=== PATIENT | male | born 1935 | race Hispanic/Latino ===

== ENCOUNTER 2018-10-30 00:10 | Inpatient (IN) | payer MEDICARE, BC ==
[2018-10-30] MEDS ORDERED: Dexamethasone 20 mg / 5 ml Inj IVP STA (00:46)
--- NOTE | 2018-10-30 00:58 | ED PDOC ---
Arrival/HPI - General Historian: Patient - History of Present Illness Narrative History of Present Illness (Text): 10/30/18 00:52 83yo male with pmhx of hypertension, Diabetes, chronic back pain, OA of the left knee who present with was bib EMS for complaint of severe lower back pain x2days. Per patient's family by the bedside patient have always had lower back pain and refused to take any medication or see a specialist but the pain became worse 2days ago. Notes that patient lives by himself and has not been able to move around secondary to the pain. Describes pain as sharp, constant and worse with any movement. Denies abdominal pain, saddle anesthesia, fecal/urinary inco ntinence, focal weakness, fever, chills, hematuria, trauma, any other complaint. <Magnolia Quintanilla A - Last Filed: 10/30/18 00:52> <Macario Cuadra - Last Filed: 10/30/18 05:58> - General Chief Complaint: Back Pain Past Medical History - Provider Review Nursing Documentation Reviewed: Yes - Infectious Disease Hx of Infectious Diseases: None - Cardiac Hx Cardiac Disorders: Yes Hx Hypertension: Yes - Pulmonary Hx Respiratory Disorders: No - Neurological Hx Neurological Disorder: No - HEENT Hx HEENT Disorder: No - Renal Hx Renal Disorder: No - Endocrine/Metabolic Hx Endocrine Disorders: Yes Hx Diabetes Mellitus Type 2: Yes - Hematological/Oncological Hx Blood Disorders: No - Integumentary Hx Dermatological Disorder: No - Musculoskeletal/Rheumatological Hx Musculoskeletal Disorders: Yes Hx Back Pain: Yes - Gastrointestinal Hx Gastrointestinal Disorders: No - Genitourinary/Gynecological Hx Genitourinary Disorders: No - Psychiatric Hx Psychophysiologic Disorder: No Hx Substance Use: No <Magnolia Quintanilla A - Last Filed: 10/30/18 00:52> Family/Social History - Physician Review Nursing Documentation Reviewed: Yes Family/Social History: Unknown Family HX Smoking Status: Never Smoked Hx Alcohol Use: No Hx Substance Use: No <Magnolia Quintanilla A - Last Filed: 10/30/18 00:52> Allergies/Home Meds <Magnolia Quintanilla A - Last Filed: 10/30/18 00:52> <Macario Cuadra - Last Filed: 10/30/18 05:58> Allergies/Adverse Reactions: Allergies No Known Allergies Allergy (Verified 10/30/18 00:22) Home Medications: Home Meds Medication Instructions Recorded Confirmed Unobtainable 10/30/18 10/30/18 Review of Systems - Physician Review All systems were reviewed & negative as marked: Yes - Review of Systems Constitutional: Normal Eyes: Normal ENT: Normal Respiratory: Normal Cardiovascular: Normal Gastrointestinal: Normal Genitourinary Male: Normal Musculoskeletal: Back Pain Skin: Normal Neurological: Normal Endocrine: Normal Hemo/Lymphatic: Normal Psychiatric: Normal <DirkieshaHappiness A - Last Filed: 10/30/18 00:52> Physical Exam Vital Signs Reviewed: Yes Vital Signs Temp Pulse Resp BP Pulse Ox 10/30/18 00:32 97.3 F L 80 18 185/96 H 97 Temperature: Afebrile Blood Pressure: Normal Pulse: Regular Respiratory Rate: Normal Appearance: Positive for: Well-Appearing, Non-Toxic, Comfortable Pain Distress: Moderate Mental Status: Positive for: Alert and Oriented X 3 - Systems Exam Head: Present: Atraumatic, Normocephalic Pupils: Present: PERRL Extroacular Muscles: Present: EOMI Conjunctiva: Present: Normal Mouth: Present: Moist Mucous Membranes Neck: Present: Normal Range of Motion Respiratory/Chest: Present: Clear to Auscultation, Good Air Exchange. No: Respiratory Distress, Accessory Muscle Use Cardiovascular: Present: Regular Rate and Rhythm, Normal S1, S2. No: Murmurs Abdomen: No: Tenderness, Distention, Peritoneal Signs Back: Present: Pain with Leg Raise (B/L). No: Midline Tenderness (Unable to evaluate secondary to pain), Paraspinal Tenderness (Unable to evaluate secondary to pain) Upper Extremity: Present: Normal Inspection. No: Cyanosis, Edema Lower Extremity: Present: Normal Inspection. No: Edema Neurological: Present: GCS=15, CN II-XII Intact, Speech Normal Skin: Present: Warm, Dry, Normal Color. No: Rashes Psychiatric: Present: Alert, Oriented x 3, Normal Insight, Normal Concentration <Diru,Happiness A - Last Filed: 10/30/18 00:52> Vital Signs Temp Pulse Resp BP Pulse Ox 10/30/18 00:32 97.3 F L 80 18 185/96 H 97 <Macario Cuadra - Last Filed: 10/30/18 05:58> Medical Decision Making - RAD Interpretation Radiology Orders: 10/30/18 00:44 LUMBAR SPINE W/O CONTRAST [CT] Stat - Medication Orders Current Medication Orders: Dexamethasone (Decadron Inj) 10 mg IVP STAT STA Stop: 10/30/18 00:47 Diazepam (Valium) 5 mg PO ONCE ONE; Protocol Stop: 10/30/18 00:48 Ketorolac Tromethamine (Toradol) 15 mg IVP STAT STA Stop: 10/30/18 00:48 <Magnolia Quintanilla - Last Filed: 10/30/18 00:52> ED Course and Treatment: 10/30/18 04:32 CT LS Spine-CT scan of the lumbar spine without contrast. Indication: Low back pain. Technique: Axial CT scan images without contrast. Reformatted coronal and sagittal images. Findings: Erosive endplate changes are noted at the level of the intervertebral disc space of L1 and L2. Prominent surrounding soft tissue thickening and inflammatory fat stranding. Associated moderate diffuse disc bulge with moderate narrowing of the corresponding aspect of the spinal canal. Moderate osteopenia. Straightening of lumbar lordosis, probably muscular spasm and pain. There are moderate diffuse spondylotic changes. Findings are demonstrated by disc space narrowing, osteophyte formation and degenerative endplate changes. Facet joint arthropathy is noted. No fracture or dislocation is seen. No aggressive bone lesion is noted. Mild multilevel narrowing of the spinal canal at the remaining levels from L2- S1. Moderate bilateral neural foramina narrowing at the same levels. Moderate prostatomegaly. Multiple stones are noted in the bladder with the largest measuring 1.3 cm. Impression: Erosive changes of spondylotic ascites are noted at L1-L2. No associated drainable abscess formation. Spondylosis. Multilevel facet joint arthropathy 10/30/2018 05:[address] Prakash Marinelli, who accepts patient to be admitted to med-surg for observation under his service for lumbar disc disease and intractable back pain. 10/30/2018 03:[address] IMPRESSION: Erosive changes of spondylotic ascites are noted at L1-L2. No associated drainable abscess formation. Spondylosis. Multilevel facet joint arthropathy. Dictator: Emanuel Orantes MD - Lab Interpretations Lab Results: PT 14.9 SECONDS (9.4-12.5) H 10/30/18 00:55 INR 1.34 10/30/18 00:55 APTT 30.8 Seconds (26.9-38.3) 10/30/18 00:55 - RAD Interpretation Radiology Orders: 10/30/18 00:44 LUMBAR SPINE W/O CONTRAST [CT] Stat - Medication Orders Current Medication Orders: Discontinued Medications Dexamethasone (Decadron Inj) 10 mg IVP STAT STA Stop: 10/30/18 00:47 Last Admin: 10/30/18 01:11 Dose: 10 mg IVP Administration Document 10/30/18 01:11 SS (Rec: 10/30/18 01:11 SS [id number]) Charges for Administration # of IVP Administrations 1 Diazepam (Valium) 5 mg PO ONCE ONE; Protocol Stop: 10/30/18 00:48 Last Admin: 10/30/18 01:11 Dose: 5 mg Ketorolac Tromethamine (Toradol) 15 mg IVP STAT STA Stop: 10/30/18 00:48 Last Admin: 10/30/18 01:11 Dose: 15 mg MAR Pain Assessment Document 10/30/18 01:11 SS (Rec: 10/30/18 01:11 SS [id number]) Pain Reassessment Is this a pain reassessment? No Sleep Is patient sleeping during reassessment? No Presence of Pain Presence of Pain Yes IVP Administration Document 10/30/18 01:11 SS (Rec: 10/30/18 01:11 SS [id number]) Charges for Administration # of IVP Administrations 1 <Macario Cuadra - Last Filed: 10/30/18 05:58> - PA / DOOR PERSON / Resident Statement MAL has reviewed & agrees with the documentation as recorded. MAL has examined the patient and agrees with the treatment plan. <Macario Cuadra - Last Filed: 10/30/18 05:58> Disposition/Present on Arrival - Present on Arrival History of DVT/PE: No History of Uncontrolled Diabetes: No Urinary Catheter: No History of Decub. Ulcer: No History Surgical Site Infection Following: None <Magnolia Quintanilla - Last Filed: 10/30/18 00:52> - Present on Arrival Any Indicators Present on Arrival: No History of DVT/PE: No History of Uncontrolled Diabetes: No Urinary Catheter: No History of Decub. Ulcer: No History Surgical Site Infection Following: None - Disposition Have Diagnosis and Disposition been Completed?: Yes Disposition Time: 05:02 <Macario Cuadra - Last Filed: 10/30/18 05:58> - Disposition Diagnosis: Intractable low back pain, Lumbar disc disease Disposition: HOSPITALIZED Patient Problems: Current Active Problems Problem Status Onset Intractable low back pain Acute Lumbar disc disease Acute Condition: STABLE
[2018-10-30 01:12] LABS: BASO # 0.01 K/mm3 (0.0-2.0); BASO % 0.1 % (0.0-3.0); HEMOGLOBIN 12.2 g/dL (14.0-18.0); LYMPH # 0.8 (1.2-3.4); LYMPH % 7.3 % (22.0-35.0); MEAN CELL VOLUME 92.5 fl (80.0-105.0); MEAN CORPUSCULAR HEMOGLOBIN 30.7 pg (25.0-35.0); MEAN CORPUSCULAR HGB CONC 33.2 g/dl (31.0-37.0); MEAN PLATELET VOLUME 11.3 fl (7.0-11.0); MONO # 1.3 (0.1-0.6); MONO % 12.8 % (1.0-6.0); RBC 3.98 10^6/uL (3.5-6.1); RED CELL DISTRIBUTION WIDTH 14.2 % (11.5-14.5); WHITE BLOOD COUNT 10.5 10^3/uL (4.5-11.0)
[2018-10-30 01:23] LABS: INR 1.34; PROTHROMBIN TIME 14.9 SECONDS (9.4-12.5)
[2018-10-30 01:31] LABS: PARTIAL THROMBOPLASTIN TIME 30.8 Seconds (26.9-38.3)
[2018-10-30 02:17] LABS: ALB/GLOB RATIO 1.4 (1.1-1.8); CALCIUM 9.8 mg/dL (8.4-10.5)
[2018-10-30] MEDS ORDERED: Morphine 2 mg/ml ISec IVP STA (04:17)
[2018-10-30] MEDS ORDERED: Oxycodone/Acetaminophen 5/325 mg Tab PO PRN (05:05)
[2018-10-30] MEDS: Insulin Reg-MEDIUM-Coverage SC SCH ×4 (08:24→21:38)
[2018-10-30] MEDS: Oxycodone/Acetaminophen 5/325 mg Tab PO PRN (10:56)
--- NOTE | 2018-10-30 12:23 | CT ---
Date of service: 10/30/2018 PROCEDURE: CT Lumbar Spine without contrast HISTORY: lower back pain COMPARISON: None available. TECHNIQUE: Axial computed tomography images were obtained of the lumbar spine without the use of intravenous contrast. Coronal and sagittal reformatted images were created and reviewed. Radiation dose: Total exam DLP = 1475.57 mGy-cm. This CT exam was performed using one or more of the following dose reduction techniques: Automated exposure control, adjustment of the mA and/or kV according to patient size, and/or use of iterative reconstruction technique. FINDINGS: VERTEBRAE: Unremarkable. No fracture. Normal alignment. DISCS/SPINAL CANAL/NEURAL FORAMINA: Marked erosive changes at L1-2 with severe endplate sclerosis and erosions. Prominent surrounding the soft tissues thickness digested possible inflammation. Associated disc bulge with narrowing of the central canal. Diffuse severe osteopenia. Multilevel facet arthropathy. Multilevel narrowing of the spinal canal from L2 through S1. Multilevel spondylotic foraminal stenosis. PARASPINAL SOFT TISSUES: Unremarkable. OTHER FINDINGS: Marked prostate enlargement. IMPRESSION: Markedly severe erosive changes at L1-2. No acute fracture. Spinal stenosis at L1-2 with soft tissue swelling possibly representing underlying inflammatory component. Otherwise multilevel degenerative disc disease, spondylosis and osteopenia.
--- NOTE | 2018-10-30 13:16 | MRI ---
Date of service: 10/30/2018 PROCEDURE: MR LUMBAR SPINE WITHOUT CONTRAST HISTORY: LS radiculopathy COMPARISON: CT of the abdomen 06/17/[address] of the lumbar spine 10/30/2018 TECHNIQUE: Multiecho multiplanar sequences were performed through the lumbar spine without the use of intravenous contrast. FINDINGS: Straightening of the lumbar spine Vertebral body heights are preserved. Marrow signal unremarkable. Conus medullaris unremarkable at the level of L1 Paraspinal soft tissues are unremarkable. T12-L1: No disc herniation, spinal canal stenosis or neural foraminal narrowing. L1-2: Severe degenerative changes are seen in the L1 L2 disc space. The disc space is filled with fluid. Severe degenerative changes of been seen at this level since the CT of 2011. Therefore this most likely represents progression of degeneration rather than discitis. There is no evidence of marrow edema to suggest acute infection. The disc bulge and facet arthropathy produces a severe degree of spinal stenosis at this level. L2-3: Severe disc degeneration with loss of disc height. Moderate facet arthropathy. L3-4: Asymmetric disc bulge right greater than left with right-sided foraminal stenosis. Mild central stenosis L4-5: Disc bulge and severe facet arthropathy. Bilateral foraminal stenosis. No significant central stenosis. L5-S1: Severe disc degeneration with loss of disc height and bilateral foraminal stenosis OTHER FINDINGS: None. IMPRESSION: Severe degenerative changes are seen in the L1 L2 disc space. The disc space is filled with fluid. Severe degenerative changes of been seen at this level since the CT of 2011. Therefore this most likely represents progression of degeneration rather than discitis. There is no evidence of marrow edema to suggest acute infection. The disc bulge and facet arthropathy produces a severe degree of spinal stenosis at this level.
--- NOTE | 2018-10-30 19:42 | HP ---
DATE OF EXAM: 10/30/2018 HISTORY OF PRESENT ILLNESS: The patient is an 83-year-old white male who presented to the emergency room with severe low back pain. PAST MEDICAL HISTORY: Remarkable for diabetes, hypertension, and left knee osteoarthritis. FAMILY HISTORY: Noncontributory. SOCIAL HISTORY: Nonsmoker, does not abuse illegal medications. ALLERGIES: NO KNOWN ALLERGIES. The patient has been having back pain off and on for many years, but it has now gotten much worse and the patient is unable to walk. PHYSICAL EXAMINATION: VITAL SIGNS: Temperature of 97.8, pulse rate of 81, blood pressure of 160/80, respiratory rate 18, and O2 saturation of 97% on room air. HEENT: PERRLA. EOMI. NECK: Supple with full range of motion. LUNGS: Clear to auscultation and percussion bilaterally. HEART: Regular rate and rhythm. ABDOMEN: Soft. It is nontender. There is no organomegaly. Bowel sounds are normoactive. EXTREMITIES: Show no deformities or edema. There is some swelling of the left knee. NEUROLOGIC: Straight leg raising is positive bilaterally at 30 degrees. Deep tendon reflexes are symmetrical. Cranial nerves II through XII were intact. LABORATORY DATA: CT scan of the back showed multiple desiccated arthritic disks and straightening of the lumbar lordosis. IMPRESSION: At this time is: 1. Muscle spasm lumbosacral spine. 2. Diabetes. 3. Hypertension. 4. Osteoarthritis of the left knee. PLAN: The plan is to get MRI. We will start Zanaflex as well as some Percocet with the patient based on what the MRI shows, future intervention will be dictated. Brigido Marinelli MD
[2018-10-31 08:42] LABS: HEMOGLOBIN 11.3 g/dL (14.0-18.0); MEAN CELL VOLUME 91.4 fl (80.0-105.0); MEAN CORPUSCULAR HEMOGLOBIN 30.3 pg (25.0-35.0); MEAN CORPUSCULAR HGB CONC 33.1 g/dl (31.0-37.0); MEAN PLATELET VOLUME 11.3 fl (7.0-11.0); RBC 3.73 10^6/uL (3.5-6.1); RED CELL DISTRIBUTION WIDTH 14.1 % (11.5-14.5)
[2018-10-31 08:51] LABS: CALCIUM 9.4 mg/dL (8.4-10.5)
[2018-10-31] MEDS: Insulin Reg-MEDIUM-Coverage SC SCH ×4 (09:05→21:42)
--- NOTE | 2018-10-31 10:19 | PN ---
SUBJECTIVE: The patient was seen and examined at bedside on the remote telemetry willis. No acute events overnight. He remains afebrile and hemodynamically stable. He continues to endorse low back pain but does report it is improved since admission. He has been evaluated by PT and recommendations have been made for acute rehab. He states that he would like to discuss this with his family prior to making any decisions. OBJECTIVE: VITAL SIGNS: Temperature 97.8, pulse 73, blood pressure 160/74, respiratory rate 20 and oxygen saturation 95% on room air. GENERAL: No apparent distress. HEENT: PERRL, EOMI. No scleral icterus. No conjunctival pallor. NECK: No JVD. No bruits. LUNGS: Clear to auscultation. CARDIOVASCULAR: Regular rate and rhythm. Normal S1 and S2. ABDOMEN: Normoactive bowel sounds, soft, nontender and nondistended. EXTREMITIES: No edema. NEUROLOGIC: Awake, alert and oriented x 3. No focal motor deficits. LABORATORY DATA: Morning labs are pending. IMAGING STUDIES: MRI of the lumbar spine demonstrates severe degenerative changes to L1-L2 with no evidence of diskitis or abscess. ASSESSMENT: The patient is an 83-year-old man with a past medical history of hypertension and non-insulin dependent diabetes mellitus who presented with a several day history of low back pain and was admitted for pain control and PT evaluation. PLAN: 1. Lumbosacral radiculopathy. MRI reviewed. Continue Percocet 5/325 mg 1 tablet p.o. q. 6 hours p.r.n. pain. Continue with PT. 2. Hypertension. Continue Lisinopril 10 mg p.o. daily. 3. Non-insulin dependent diabetes mellitus. Continue insulin sliding scale for coverage and we will start Metformin 500 mg p.o. daily. 4. Prophylaxis. GI prophylaxis not indicated as the patient is eating. Continue with Heparin for DVT prophylaxis. CODE STATUS: Full code. Duncan Marinelli MD [facility]ENTERJeanette
[2018-10-31] MEDS: Oxycodone/Acetaminophen 5/325 mg Tab PO PRN (14:04)
[2018-11-01] MEDS: Oxycodone/Acetaminophen 5/325 mg Tab PO PRN ×2 (00:02→08:27)
[2018-11-01 06:42] LABS: CALCIUM 9.4 mg/dL (8.4-10.5)
[2018-11-01 06:44] LABS: HEMOGLOBIN 11.5 g/dL (14.0-18.0); MEAN CELL VOLUME 91.9 fl (80.0-105.0); MEAN CORPUSCULAR HEMOGLOBIN 30.2 pg (25.0-35.0); MEAN CORPUSCULAR HGB CONC 32.9 g/dl (31.0-37.0); MEAN PLATELET VOLUME 10.9 fl (7.0-11.0); RBC 3.81 10^6/uL (3.5-6.1); RED CELL DISTRIBUTION WIDTH 13.9 % (11.5-14.5); WHITE BLOOD COUNT 13.2 10^3/uL (4.5-11.0)
[2018-11-01] MEDS: Insulin Reg-MEDIUM-Coverage SC SCH ×4 (08:19→21:55)
[2018-11-01] MEDS ORDERED: Oxycodone/Acetaminophen 5/325 mg Tab PO ONE (09:19)
[2018-11-01] MEDS: Sodium Chloride 0.9% 1,000 ML IV SCH (09:49)
[2018-11-01 18:44] LABS: URINE BILIRUBIN SMALL (NEGATIVE); URINE BLOOD LARGE (NEGATIVE); URINE GLUCOSE (UA) NEGATIVE (NEGATIVE); URINE LEUKOCYTE ESTERASE MODERATE Leu/uL (NEGATIVE); URINE PROTEIN 30 mg/dL (<30 mg/dL)
[2018-11-01 18:47] LABS: URINE APPEARANCE SLIGHT-CLOUDY (CLEAR); URINE COLOR DARK YELLOW (YELLOW)
[2018-11-01 19:00] LABS: URINE WBC TNTC /hpf (0-6)
[2018-11-01 19:01] LABS: URINE BACTERIA MANY /hpf; URINE HYALINE CAST 0 - 2 /hpf
--- NOTE | 2018-11-01 20:28 | PN ---
SUBJECTIVE: The patient was seen and examined at bedside on the general medical willis. No acute events overnight. He remains afebrile and hemodynamically stable. PT has recommended acute rehab and the family is pending decision on this matter. OBJECTIVE: VITAL SIGNS: Temperature 98, pulse 80, blood pressure 156/74, respiratory rate 20, oxygen saturation 95% on room air. GENERAL: No apparent distress. HEENT: PERRL. EOMI. No scleral icterus. No conjunctival pallor. NECK: No JVD, no bruits. LUNGS: Clear to auscultation. CARDIOVASCULAR: Regular rate and rhythm. Normal S1 and S2. ABDOMEN: Normoactive bowel sounds, soft, nontender, nondistended. EXTREMITIES: No edema. NEUROLOGIC: Awake, alert, and oriented x 3. No focal motor deficits. LABORATORY DATA: WBC 13.2, hemoglobin 11.5, hematocrit 35, platelets 155. Sodium 137, potassium 4.3, chloride 103, bicarb 27, BUN 53, creatinine 1.9, glucose 182. ASSESSMENT: The patient is an 83-year-old man with a past medical history of hypertension and non-insulin dependent diabetes mellitus who presented with a several day history of low back pain and was admitted for pain control and PT evaluation. PLAN: 1. Lumbosacral radiculopathy. MRI reviewed. Continue Percocet 5/325 mg 1 tablet p.o. q. 6 hours p.r.n. pain. Continue with PT. 2. Hypertension. We will discontinue Lisinopril in the setting of RAYRAY and start Norvasc 10 mg p.o. daily. Continue to monitor hemodynamics and adjust medications as needed. 3. Acute kidney injury. As above, we will discontinue Lisinopril and start the patient on gentle IV fluid hydration. We will monitor I&O's. 4. Kyb-uaeaerc-qymydsobz diabetes mellitus. Continue insulin sliding scale for coverage and Metformin 500 mg p.o. daily. 5. Prophylaxis. GI prophylaxis not indicated as the patient is eating. Continue with heparin for DVT prophylaxis. CODE STATUS: Full code. Duncan Marinelli MD [facility]
[2018-11-02] MEDS: Sodium Chloride 0.9% 1,000 ML IV SCH (00:19)
[2018-11-02] MEDS: Oxycodone/Acetaminophen 5/325 mg Tab PO PRN ×4 (06:35→23:55)
[2018-11-02 06:54] LABS: HEMOGLOBIN 11.8 g/dL (14.0-18.0); MEAN CELL VOLUME 92.4 fl (80.0-105.0); MEAN CORPUSCULAR HEMOGLOBIN 29.8 pg (25.0-35.0); MEAN CORPUSCULAR HGB CONC 32.2 g/dl (31.0-37.0); RBC 3.96 10^6/uL (3.5-6.1); WHITE BLOOD COUNT 13.9 10^3/uL (4.5-11.0)
[2018-11-02 07:18] LABS: CALCIUM 9.6 mg/dL (8.4-10.5)
[2018-11-02] MEDS: Insulin Reg-MEDIUM-Coverage SC SCH ×4 (08:54→22:04)
--- NOTE | 2018-11-02 09:45 | PN ---
SUBJECTIVE: The patient was seen and examined at bedside on the remote telemetry willis. No acute events overnight. He remains afebrile and hemodynamically stable and is pending placement to acute rehab. OBJECTIVE: VITAL SIGNS: Temperature 98, pulse 85, blood pressure 152/85, respiratory rate 20, oxygen saturation 94% on room air. GENERAL: No apparent distress. HEENT: PERRL, EOMI. No scleral icterus. No conjunctival pallor. NECK: No JVD, no bruits. LUNGS: Clear to auscultation. CARDIOVASCULAR: Regular rate and rhythm. Normal S1, S2. ABDOMEN: Normoactive bowel sounds, soft, nontender, minimally distended with voluntary guarding to the suprapubic region. EXTREMITIES: No edema. NEUROLOGIC: Awake, alert and oriented x 2 (person and place). No focal motor deficits. LABORATORY DATA: WBC 13.9, hemoglobin 12, hematocrit 37, platelets 185. Sodium 140, potassium 4, chloride 103, bicarb 28, BUN 48, creatinine 1.8, glucose 223. ASSESSMENT: The patient is an 83-year-old man with a past medical history of hypertension and non-insulin dependent diabetes mellitus who presented with a several day history of low back pain was admitted for pain control and PT evaluation. PLAN: 1 Lumbosacral radiculopathy. MRI reviewed. Continue with current analgesic regimen. Continue with PT. 2. Hypertension. Blood pressure stable. Continue Norvasc 10 mg p.o. daily. 3. Acute kidney injury. Continue with gentle IV fluid hydration, monitoring strict I&O's, renally dosing medications and avoiding nephrotoxins. We will order a bladder scan to assess the patient's residual volume and determine need for catheter placement. 4. Non-insulin dependent diabetes mellitus. Continue insulin sliding scale for coverage and Metformin 500 mg p.o. daily. 5. Prophylaxis. GI prophylaxis not indicated as the patient is eating. Continue with heparin for DVT prophylaxis. CODE STATUS: Full code. Duncan Marinelli MD [facility]
--- NOTE | 2018-11-02 11:33 | CP.PCM.PCO ---
Physician Communication Note - Physician Communication Note Physician Communication Note: PT recs acute rehab, Sw/CM planning for acut rehab
--- NOTE | 2018-11-02 16:21 | CP.PCM.APN ---
Subjective - Date & Time of Evaluation Date of Evaluation: 11/02/18 Time of Evaluation: 11:00 - Subjective Subjective: Pt. seen and examined, bedside, complaints of feeling nauseous, also states "passing water every 10 min", with pain and burning, denied abdominal pain. Complains of lower back pain. Objective - Vital Signs/Intake and Output Vital Signs (last 24 hours): Temp Pulse Resp BP Pulse Ox 98 F 85 20 152/85 H 94 L 11/02/18 08:05 11/02/18 08:05 11/02/18 08:05 11/02/18 10:13 11/02/18 08:05 Intake and Output: 11/02/18 11/02/18 06:59 18:59 Intake Total 360 Output Total 450 Balance -90 - Medications Medications: Current Medications Amlodipine Besylate (Norvasc) 10 mg PO DAILY [facility] Last Admin: 11/02/18 10:13 Dose: 10 mg Docusate Sodium (Colace) 100 mg PO BID [facility] Last Admin: 11/02/18 10:12 Dose: 100 mg Heparin Sodium (Porcine) (Heparin) 5,000 units SC Q12 [facility]; Protocol Last Admin: 11/02/18 10:13 Dose: 5,000 units Insulin Human Regular (Humulin R Med) 0 units SC ACHS [facility]; Protocol Last Admin: 11/02/18 12:22 Dose: 3 unit Metformin HCl (Glucophage) 500 mg PO DAILY [facility] Last Admin: 11/02/18 10:12 Dose: 500 mg Ondansetron HCl (Zofran Inj) 4 mg IVP Q6H PRN PRN Reason: Nausea/Vomiting Last Admin: 11/02/18 11:20 Dose: 4 mg Oxycodone/Acetaminophen (Percocet 5/325 Mg Tab) 2 tab PO Q6H PRN PRN Reason: Pain, severe (8-10) Stop: 11/04/18 09:19 Last Admin: 11/02/18 12:40 Dose: 2 tab Sennosides (Senokot Tab) 17.2 mg PO [facility] Tizanidine HCl (Zanaflex) 4 mg PO TID [facility] Stop: 11/03/18 23:59 Last Admin: 11/02/18 10:14 Dose: 4 mg - Labs Labs: 11/02/18 06:00 11/02/18 06:00 PT 14.9 SECONDS (9.4-12.5) H 10/30/18 00:55 INR 1.34 10/30/18 00:55 APTT 30.8 Seconds (26.9-38.3) 10/30/18 00:55 - Constitutional Appears: Well, Non-toxic - Head Exam Head Exam: NORMOCEPHALIC - Eye Exam Eye Exam: absent: Conjunctival injection, EOMI, Normal appearance, Nystagmus, Periorbital swelling, Periorbital tenderness, PERRL, Scleral icterus - Neck Exam Neck Exam: Full ROM - Respiratory Exam Respiratory Exam: Clear to Ausculation Bilateral, NORMAL BREATHING PATTERN - Cardiovascular Exam Cardiovascular Exam: REGULAR RHYTHM, +S1, +S2 - GI/Abdominal Exam GI & Abdominal Exam: Soft - Rectal Exam Rectal Exam: Deferred - Exam External exam: absent: Ecchymosis, Erythema, Lacerations, Lesions, NORMAL EXTERNAL EXAM, Swelling Speculum exam: absent: Cervical Discharge, Erythema, Foreign Body, Laceration, NORMAL SPECULUM EXAM, Tissue, Vaginal Bleeding, Vaginal Discharge Bimanual exam: absent: Adenexal Mass, Adnexal, Cervical Motion Tendernes, NORMAL BIMANUAL EXAM, Uterine Enlargement, Uterine Tenderness - Neurological Exam Neurological Exam: Alert, Awake - Psychiatric Exam Psychiatric exam: Anxious - Skin Skin Exam: Dry, Intact Assessment and Plan - Assessment and Plan (Free Text) Assessment: ITS Impressions Lumbar Spine CT 10/30/18 00:44 IMPRESSION: Markedly severe erosive changes at L1-2. No acute fracture. Spinal stenosis at L1-2 with soft tissue swelling possibly representing underlying inflammatory component. Otherwise multilevel degenerative disc disease, spondylosis and osteopenia. Lumbar Spine MRI 10/30/18 06:25 IMPRESSION: Severe degenerative changes are seen in the L1 L2 disc space. The disc space is filled with fluid. Severe degenerative changes of been seen at this level since the CT of 2011. Therefore this most likely represents progression of degeneration rather than discitis. There is no evidence of marrow edema to suggest acute infection. The disc bulge and facet arthropathy produces a severe degree of spinal stenosis at this level. Urine Color Dark yellow (YELLOW) 11/01/18 18:20 Urine Appearance Slight-cloudy (CLEAR) 11/01/18 18:20 Urine pH 6.0 (4.7-8.0) 11/01/18 18:20 Ur Specific Sunman 1.025 (1.005-1.035) 11/01/18 18:20 Urine Protein 30 mg/dL (<30 mg/dL) H 11/01/18 18:20 Urine Glucose (UA) Negative mg/dL (NEGATIVE) 11/01/18 18:20 Urine Ketones Trace mg/dL (NEGATIVE) H 11/01/18 18:20 Urine Blood Large (NEGATIVE) H 11/01/18 18:20 Urine Nitrate Negative (NEGATIVE) 11/01/18 18:20 Urine Bilirubin Small (NEGATIVE) H 11/01/18 18:20 Urine Urobilinogen 1.0 E.U./dL (<1 E.U./dL) H 11/01/18 18:20 Ur Leukocyte Esterase Moderate Chun/uL (NEGATIVE) H 11/01/18 18:20 Urine RBC 10 - 15 /hpf (0-2) H 11/01/18 18:20 Urine WBC Tntc /hpf (0-6) H 11/01/18 18:20 Ur Epithelial Cells None /hpf (0-5) 11/01/18 18:20 Urine Bacteria Many /hpf (NONE) 11/01/18 18:20 Hyaline Casts 0 - 2 /hpf (NONE) 11/01/18 18:20 Assessement: 83yo male with pmhx of hypertension, Diabetes, chronic back pain, OA of the left knee who presented for complaint of severe lower back pain x2days. Per patient's family by the bedside patient have always had lower back pain and refused to take any medication or see a specialist but the pain became worse 2days ago, admitted for further eval and treatment. Plan: 1. Lower back pain most likely r/t Lumbarsacral radiculopathy, spinal stenosis, degenerative disc disease. cont. pain meds as ordered. 2. Htn cont current meds 3. RAYRAY Improved with IVF maybe r/t dehydration bladder scan showed no retention, trend bun/creatinine 4. UTI UA positive, cx result pending. Antibiotics ordered pending final result Will continue to monitor clinical status and follow closely. PT rec acute rehab, SW/CM planning for dc to acute rehab vs. [facility].
[2018-11-02] MEDS: cefTRIAXone 1 gm 1 GM/100 ML BAG IVPB SCH (18:07)
[2018-11-02] MEDS ORDERED: Docusate-Senna 50 mg-8.6 mg Tab PO SCH (22:00)
--- NOTE | 2018-11-03 02:22 | CP.PCM.PCO ---
<Bill Bonds - Last Filed: 11/03/18 02:19> Addendum Addendum: 11/03/18 02:20 PGY1 House Doctor: Patient's O2 sat is 89. Please administer O2 via Nasal cannula PRN <Kenzie Pelayo - Last Filed: 11/03/18 06:42> Attending/Attestation - Attestation I have personally seen and examined this patient.: No I have fully participated in the care of the patient.: No I have reviewed all pertinent clinical information: No
[2018-11-03] MEDS: Oxycodone/Acetaminophen 5/325 mg Tab PO PRN ×3 (06:03→19:52)
[2018-11-03 07:02] LABS: MEAN CELL VOLUME 93.2 fl (80.0-105.0); MEAN CORPUSCULAR HEMOGLOBIN 29.7 pg (25.0-35.0); MEAN CORPUSCULAR HGB CONC 31.8 g/dl (31.0-37.0); RBC 3.37 10^6/uL (3.5-6.1); RED CELL DISTRIBUTION WIDTH 14.1 % (11.5-14.5); WHITE BLOOD COUNT 14.9 10^3/uL (4.5-11.0)
[2018-11-03 07:10] LABS: CALCIUM 9.2 mg/dL (8.4-10.5)
[2018-11-03] MEDS: Insulin Reg-MEDIUM-Coverage SC SCH ×4 (08:30→21:48)
[2018-11-03] MEDS: cefTRIAXone 1 gm 1 GM/100 ML BAG IVPB SCH (09:30)
--- NOTE | 2018-11-03 10:08 | PN ---
SUBJECTIVE: The patient was seen and examined at bedside on the remote telemetry willis. He is pending evaluation with Dr. Ceballos for possible epidural injection. Arrangements are also being made for placement to a subacute rehab. OBJECTIVE: VITAL SIGNS: Temperature 98.8, pulse 95, blood pressure 116/63, respiratory rate 20, oxygen saturation 90% on room air. GENERAL: Elderly man appearing his stated age, lying in bed in moderate distress secondary to low back pain. HEENT: PERRL, EOMI. No scleral icterus. No conjunctival pallor. NECK: No JVD, no bruits. LUNGS: Decreased breath sounds to the left base. CARDIOVASCULAR: Regular rate and rhythm. Normal S1, S2. ABDOMEN: Normoactive bowel sounds, soft, nontender, minimally distended with voluntary guarding to suprapubic region. EXTREMITIES: No edema. NEUROLOGIC: Awake, alert and oriented x 2 (person and place). No focal motor deficits. LABORATORY DATA: WBC 14.9, hemoglobin 10, hematocrit 31, platelets 213. Sodium 140, potassium 4.2, chloride 106, bicarb 26, BUN 58, creatinine 2.3, glucose 202. ASSESSMENT: The patient is an 83-year-old man with a past medical history of hypertension and non-insulin dependent diabetes mellitus who presented with several day history of low back pain was admitted for pain control and PT evaluation. PLAN: 1. Lumbosacral radiculopathy. MRI reviewed. Continue with current analgesic regimen. Continue with PT. The patient is pending evaluation with Dr. Ceballos for possible epidural injection. Heparin remains on hold in anticipation of his procedure. 2. Hypertension. Blood pressure stable. Continue Norvasc 10 mg p.o. daily. 3. CKD stage II. After reviewing the patient's outpatient labs his baseline creatinine is 2. We will continue to monitor strict I&O's, renally dose medications and avoid nephrotoxins. We will place a Zavaleta catheter to facilitate monitoring strict I&O's. 4. Non-insulin dependent diabetes mellitus. Fingersticks remain elevated. We will d/c Metformin due to renal insufficiency and start Glimepiride 2 mg p.o. b.i.d. Continue insulin sliding scale for coverage. 5. Hyperlipidemia. Resume Lipitor 40 mg p.o. daily. 6. BPH. Resume Flomax 0.4 mg p.o. daily. 7. Prophylaxis. GI prophylaxis not indicated as the patient is eating. Continue with Heparin for DVT prophylaxis. CODE STATUS: Full code. Duncan Marinelli MD MTDJeanette
--- NOTE | 2018-11-03 11:06 | RAD ---
Date of service: 11/03/2018 HISTORY: eval COMPARISON: No prior. FINDINGS: LUNGS: Opacity at left base. Infiltrate versus atelectasis. Linear scar/atelectasis at right base. PLEURA: No significant pleural effusion identified, no pneumothorax apparent. CARDIOVASCULAR: No aortic atherosclerotic calcification present. Normal cardiac size. No pulmonary vascular congestion. OSSEOUS STRUCTURES: No significant abnormalities. VISUALIZED UPPER ABDOMEN: Normal. OTHER FINDINGS: None. IMPRESSION: Possible left basilar pneumonia. Follow-up advised.
[2018-11-03] MEDS: Albuterol-Ipratrop 3 mg / 0.5 (3 ml) UD IH SCH ×3 (11:16→19:36)
[2018-11-03] MEDS ORDERED: Digoxin 500 mcg/2ml (0.5 mg/2ml) Inj IVP ONE (15:30)
[2018-11-03] MEDS: Sodium Chloride 0.9% 1,000 ML IV SCH (15:56)
[2018-11-03] MEDS: Enoxaparin 100 mg Syringe SC SCH (17:22)
--- NOTE | 2018-11-03 18:09 | CARD ---
APPROVED REPORT Date of service: 11/03/2018 EKG Measurement Heart [id number] <Conclusion> Atrial fibrillation Inferior infarct, age undetermined Abnormal ECG
--- NOTE | 2018-11-03 21:14 | CARD ---
APPROVED REPORT Date of service: 11/03/2018 EKG Measurement Heart [id number] <Conclusion> Atrial fibrillation Leftward axis Inferior infarct, age undetermined No change since tracing earlier today Abnormal ECG
--- NOTE | 2018-11-03 22:18 | CON ---
DATE: 11/03/2018 CONSULT SERVICE: Cardiology. REASON FOR CONSULTATION: Atrial fibrillation, new onset and cardiac evaluation. BRIEF CLINICAL HISTORY: This is an 83-year-old male with past medical history significant for diabetes more than 30 years, hypertension, left knee osteoarthritis, walks with a cane, who presented with severe back pain. MRI done and the patient is scheduled today for epidural injection. The patient was taken to the same-day surgery where the patient was found to be in AFib, so the epidural was postponed and Cardiology consult was called. The patient is very weak, lethargic and unable to give any information. Information obtained from the 2 daughters and the son-in-law, though the patient denies any chest pain. PAST MEDICAL HISTORY: Significant for diabetes more than 30 years, history of hypertension, and history of osteoarthritis of the right knee and walks with a cane. FAMILY HISTORY: Noncontributory. According to the daughter, the patient is athletic. Never had heart problem. Thirty years ago, pt had stress test was unremarkable. SOCIAL HISTORY: Denies any smoking. Denies any history of alcohol abuse. ALLERGIES: NO KNOWN DRUG ALLERGY. HOME MEDICATIONS: Unable to obtain medication from at home, probably says the diabetic pills he was taking according to the daughter. REVIEW OF SYSTEMS: Denies any chest pain, shortness of breath or any palpitation as per HPI. PREVIOUS CARDIAC WORKUP FOLLOWS: The patient had a stress test 30 years ago and that was negative. Daughter states he has very athletic life, never complained of chest pain, never a heart condition. PAST SURGICAL HISTORY: No past surgical history. PHYSICAL EXAMINATION: VITAL SIGNS: Height of the patient is 5 feet 6 inches, weight of the patient 200 pounds, and body mass index 33 kg/m2. Temperature afebrile, heart rate 89, and blood pressure 160/63. HEENT: PERRLA. Extraocular muscles intact. NECK: Supple. No carotid bruit or thyromegaly. CHEST: Clear to auscultation. HEART: S1 and S2 regular. ABDOMEN: Soft. EXTREMITIES: Clubbing and cyanosis negative. LABORATORY DATA: Blood workup; WBC 14.9, hemoglobin 10, hematocrit 31.7, and platelet count 213. Chemistry shows sodium 140, potassium 4.2, chloride 106, bicarb 26, anion gap of 12, BUN 58, and creatinine 2.3. EKG shows AFib at a rate of 89, poor RR progression, inferior wall DC of undetermined age. Today's troponin was sent after the patient has AFib, found to be 0.36. Repeat troponin is pending. BNP is elevated 9880. Chest x-ray, no definite CHF noted, but a very poor inspiratory effort noted. Lumbosacral spine MRI, severe degenerative joint disease at L1-L2 disk space noted. IMPRESSION: An 83-year-old male with past medical history of diabetes, hypertension, who is very active in his life, recently the patient had right knee arthritis and severe back pain secondary to lumbosacral degenerative joint disease, is scheduled for epidural injection, and found to be in a new onset of atrial fibrillation. Denies any chest pain, shortness of breath, or any palpitation. The patient has also renal insufficiency, admitting creatinine is 1.7, today it is 2.3 c/w about a stage IV chronic kidney disease. Creatinine clearance is 27 mL, when admitted it was 36 mL. New onset atrial fibrillation. Poorly controlled diabetes. RECOMMENDATIONS: Follow up serial CPK, troponin, though troponin could be elevated secondary to the kidney disease. Follow up EKG, echo in the morning, lipid profile, TSH, hemoglobin A1c, and also serial troponin. We will start low dose of beta-markus and start baby aspirin daily. We will give 325 of aspirin stat and 81 mg daily and 1 mg/kg Lovenox has been given and IV fluids given. Further management depending upon hospital course. We will follow with you. Thank you Dr. Marinelli for providing us the opportunity in taking care of patient, Gunnar Valero. Markus Gill MD RENA[facility]
[2018-11-03] MEDS ORDERED: Lidocaine 5% Patch TD STA (22:20)
--- NOTE | 2018-11-03 22:22 | CP.PCM.PCO ---
<Bill Bonds - Last Filed: 11/03/18 22:21> Addendum Addendum: 11/03/18 22:21 PGY1 House Doctor: Patient is 83 year old male with history of lumbar disc disease and intractable low back pain. Patient is complaining of low back pain; states that percocet did not improve pain. Lidoderm patch x1 dose ordered. <Kenzie Pelayo - Last Filed: 11/04/18 06:08> Attending/Attestation - Attestation I have personally seen and examined this patient.: No I have fully participated in the care of the patient.: No I have reviewed all pertinent clinical information: No
[2018-11-03] MEDS: Cefepime 1gm in NS 100ml 1 GM/100 ML BAG IVPB SCH (23:39)
[2018-11-04] MEDS: Albuterol-Ipratrop 3 mg / 0.5 (3 ml) UD IH SCH ×6 (01:01→20:05)
[2018-11-04] MEDS: Sodium Chloride 0.9% 1,000 ML IV SCH ×2 (01:37→17:54)
[2018-11-04] MEDS: Oxycodone/Acetaminophen 5/325 mg Tab PO PRN ×2 (03:16→18:17)
[2018-11-04 06:51] LABS: EOS # 0.1 (0.0-0.7); EOS % 0.4 % (1.5-5.0); HEMOGLOBIN 10.5 g/dL (14.0-18.0); LYMPH # 0.7 (1.2-3.4); MEAN CELL VOLUME 93.7 fl (80.0-105.0); MEAN PLATELET VOLUME 10.7 fl (7.0-11.0); MONO # 1.4 (0.1-0.6); RBC 3.5 10^6/uL (3.5-6.1); RED CELL DISTRIBUTION WIDTH 14.3 % (11.5-14.5)
[2018-11-04 06:53] LABS: ALBUMIN 3.2 g/dL (3.0-4.8); CALCIUM 9.3 mg/dL (8.4-10.5)
[2018-11-04 07:08] LABS: TROPONIN I 0.26 ng/mL
[2018-11-04] MEDS ORDERED: Digoxin 500 mcg/2ml (0.5 mg/2ml) Inj IVP ONE (07:38)
--- NOTE | 2018-11-04 07:50 | CP.PCM.PN ---
Subjective - Date & Time of Evaluation Date of Evaluation: 11/04/18 Time of Evaluation: 06:10 - Subjective Subjective: Awake, complaining of back pain, no distress Reason for consultation and follow up: Cardiac evaluation of new onset atrial fibrillation Seen and examined by me and Dr. Gill Objective - Vital Signs/Intake and Output Vital Signs (last 24 hours): Temp Pulse Resp BP Pulse Ox 98.5 F 117 H 18 152/71 H 92 L 11/04/18 07:40 11/04/18 07:40 11/04/18 07:40 11/04/18 07:40 11/04/18 07:40 Intake and Output: 11/04/18 11/04/18 06:59 18:59 Intake Total 900 Output Total 1100 Balance -200 - Medications Medications: Current Medications Albuterol/Ipratropium (Duoneb 3 Mg/0.5 Mg (3 Ml) Ud) 3 ml IH [id number] [facility] Last Admin: 11/04/18 04:01 Dose: Not Given Amlodipine Besylate (Norvasc) 10 mg PO DAILY [facility] Last Admin: 11/03/18 09:29 Dose: 10 mg Aspirin (Ecotrin) 81 mg PO DAILY [facility] Atenolol (Tenormin) 12.5 mg PO BID [facility] Atorvastatin Calcium (Lipitor) 80 mg PO DIN [facility] Last Admin: 11/03/18 17:19 Dose: 80 mg Digoxin (Lanoxin) 0.25 mg IVP ONCE ONE Stop: 11/04/18 07:39 Digoxin (Digoxin) 0.125 mg PO 1400 [facility] Docusate Sodium (Colace) 100 mg PO BID [facility] Last Admin: 11/03/18 17:17 Dose: 100 mg Doxycycline Hyclate (Doryx) 100 mg PO Q12 [facility]; Protocol Stop: 11/13/18 10:01 Enoxaparin Sodium (Lovenox) 90 mg SC Q24H [facility]; Protocol Last Admin: 11/03/18 17:22 Dose: 90 mg Glimepiride (Amaryl) 2 mg PO BIDWM [facility] Last Admin: 11/03/18 17:17 Dose: 2 mg Sodium Chloride (Sodium Chloride 0.9%) 1,000 mls @ 100 mls/hr IV .Q10H [facility] Last Admin: 11/04/18 01:37 Dose: 100 mls/hr Cefepime HCl (Maxipime 1gm) 1 gm in 100 mls @ 100 mls/hr IVPB Q24H [facility]; Protocol Stop: 11/12/18 23:01 Last Admin: 11/03/18 23:39 Dose: 100 mls/hr Insulin Human Regular (Humulin R Med) 0 units SC ACHS [facility]; Protocol Last Admin: 11/03/18 21:48 Dose: Not Given Ondansetron HCl (Zofran Inj) 4 mg IVP Q6H PRN PRN Reason: Nausea/Vomiting Last Admin: 11/02/18 11:20 Dose: 4 mg Oxycodone/Acetaminophen (Percocet 5/325 Mg Tab) 2 tab PO Q6H PRN PRN Reason: Pain, severe (8-10) Stop: 11/04/18 09:19 Last Admin: 11/04/18 03:16 Dose: 2 tab Sennosides (Senokot Tab) 17.2 mg PO HS [facility] Last Admin: 11/03/18 21:48 Dose: 17.2 mg Tamsulosin HCl (Flomax) 0.4 mg PO DAILY [facility] Last Admin: 11/03/18 09:28 Dose: 0.4 mg - Labs Labs: 11/04/18 06:25 11/04/18 06:25 PT 14.9 SECONDS (9.4-12.5) H 10/30/18 00:55 INR 1.34 10/30/18 00:55 APTT 30.8 Seconds (26.9-38.3) 10/30/18 00:55 - Constitutional Appears: Non-toxic, No Acute Distress - Head Exam Head Exam: NORMAL INSPECTION, NORMOCEPHALIC - ENT Exam ENT Exam: Mucous Membranes Moist, Normal Exam - Respiratory Exam Respiratory Exam: Decreased Breath Sounds, Clear to Ausculation Bilateral, NORMAL BREATHING PATTERN - Cardiovascular Exam Cardiovascular Exam: Irregular Rhythm, +S1, +S2 Additional comments: Atrial fibrillation 100-110's - GI/Abdominal Exam GI & Abdominal Exam: Soft, Normal Bowel Sounds - Extremities Exam Extremities Exam: Full ROM, Normal Capillary Refill - Back Exam Additional comments: chronic back pain - Neurological Exam Neurological Exam: Alert, Awake, Oriented x3 - Psychiatric Exam Psychiatric exam: Normal Affect, Normal Mood - Skin Skin Exam: Dry, Normal Color, Warm Assessment and Plan - Assessment and Plan (Free Text) Assessment: An 83 year old male who came in to [facility] Same day procedure for epidural injection for severe back pain. In SDS , he was found to be in atrial fibrillation thus was sent to the ER. 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 Patient has renal insufficiency with creatinine of 1.7/2.3. Creatinine clearance of 36. Uncontrolled diabetes, new onset atrial fibrillation. Denies chest pain. Troponin elevated 0.36/0.32/0.26/0.26. probably secondary to renal insuffciency. Patient denies chest pain or shortness of breath. Digoxin IV given . started on Atenolol low dose due to low systolic blood pressure. For echo today. Plan: Complaining of severe back pain Heart rate on 100-110's atrial fibrillation Borderline low blood pressure Will give digoxin 0,25 mg IV now then Digoxin 0.125 mg po every MWF On ASA 81 mg daily, Norvasc 10 mg daily, Tenormin 12.5 mg BID, Lipitor 80 mg daily,Flomax 0.4 mg daily Will hold Norvasc for now for low blood pressure Continue current medications Continue current treatment Will follow up Pain management Plan and treatment discussed with Dr. Gill
[2018-11-04] MEDS: Insulin Reg-MEDIUM-Coverage SC SCH ×4 (09:03→21:15)
--- NOTE | 2018-11-04 09:08 | CON ---
DATE OF CONSULTATION: 11/04/2018 The patient is seen earlier in 361, bed 1. CHIEF COMPLAINT: Back pain times several days. HISTORY OF PRESENT ILLNESS: This is an 83-year-old male, who was admitted on 10/30/2018 with back pain and with a history of hypertension, diabetes, chronic back pain, osteoarthritis of the left knee, coronary artery disease, who now has new infiltrates on chest x-ray. Infectious Disease consultation requested. Review of systems reveals the patient has mild shortness of breath. No chest pain. His major complaint is back pain. REVIEW OF SYSTEMS: A 12-point review of systems is performed. PAST MEDICAL HISTORY: Significant for hypertension, diabetes, chronic back pain, osteoarthritis, and coronary artery disease. PAST SURGICAL HISTORY: Noncontributory. ALLERGIES: THE PATIENT HAS NO KNOWN ALLERGIES. MEDICATIONS: Medications at home are noted. PHYSICAL EXAMINATION: GENERAL: The patient is in bed. VITAL SIGNS: Temperature of 98, blood pressure is 150/70, respiratory rate of 18, heart rate of 115. HEENT: Examination of HEENT is unremarkable. NECK: Supple. LUNGS: Have decreased breath sounds. HEART: Normal S1, S2. ABDOMEN: Soft, nontender. LABORATORY DATA: Laboratory examination reveals a white count of 12,000, it was 14,000 yesterday. Chemistries reveal the patient's creatinine is up to 2.1, it was initially at 1.7. Prior to this admission, it was 1.4. Urinalysis is noted and too numerous to count wbc's from the third and digoxin level is reviewed. Microbiology reveals a gram-positive cocci in the urine. The patient had a chest x-ray yesterday, which showed left base opacity. ASSESSMENT AND PLAN: This is an 83-year-old male, who was admitted with chronic back pain and now with severe sepsis with left-sided healthcare-associated pneumonia with acute kidney injury, lumbosacral radiculopathy. We will treat the patient with Maxipime and doxycycline pending urine culture, blood cultures, sputum cultures, and procalcitonin, and we will follow closely with you. Also, we ordered an ultrasound of the abdomen. Peewee Middleton MD
--- NOTE | 2018-11-04 10:48 | PN ---
SUBJECTIVE: The patient was seen and examined at bedside on the remote telemetry willis. His epidural injection was cancelled yesterday due to new-onset Afib. The patient was also found to have an elevated troponin (peaked at 0.36) and has ongoing evaluation with Dr. Gill of Cardiology. This morning he continues to endorse back pain but states it is controlled with his current analgesic regimen. He otherwise denies fevers, chills, rigors, chest pain, palpitations or dyspnea. OBJECTIVE: VITAL SIGNS: Temperature 98.5, pulse 117, blood pressure 152/71, respiratory rate 18, oxygen saturation 92% on room air. GENERAL: No apparent distress. HEENT: PERRL, EOMI. No scleral icterus. No conjunctival pallor. NECK: No JVD. LUNGS: Decreased breath sounds left base. CARDIOVASCULAR: Irregularly irregular. Normal S1, S2. ABDOMEN: Normoactive bowel sounds, soft, nontender and nondistended. EXTREMITIES: No edema. NEUROLOGIC: Awake, alert and oriented x 3. No focal motor deficits. LABORATORY DATA: WBC 12 with 82% neutrophils, hemoglobin 10.5, hematocrit 33, platelets 241. Sodium 139, potassium 4, chloride 106, bicarb 26, BUN 57, creatinine 2.1, glucose 217. Troponin 0.36, 0.32, 0.26. BNP 9880. TSH 1.42. ASSESSMENT: The patient is an 83-year-old man with a past medical history of hypertension and non-insulin dependent diabetes mellitus who presented with a several day history of low back pain and was admitted for pain control and PT evaluation whose hospital course was complicated by development of new onset Afib and healthcare-associated pneumonia. PLAN: 1. Afib, new onset. Input from Dr. Gill noted. The patient has a TTE pending. Continue with therapeutic Lovenox, ASA 81 mg p.o. daily, Atenolol 12.5 mg p.o. b.i.d. and Digoxin 0.125 mg p.o. daily. 2. Elevated troponin, consider secondary to impaired renal clearance vs NSTEMI. As above input from Dr. Gill noted. Continue with conservative medical management. The patient will require stress testing to rule out underlying ischemia. 3. Healthcare-associated pneumonia. Input from Dr. Middleton noted. The patient remains afebrile and with negative cultures. Continue with current antimicrobials. Procalcitonin level pending. 4. Hypertension. Blood pressure controlled. Continue Atenolol 12.5 mg p.o. b.i.d. 5. 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 Abdominal ultrasound is pending to further evaluate kidneys. Continue with gentle IV fluid hydration, monitor strict I&O's, renally dose medications and avoid nephrotoxins. 6. NIDDM. A repeat hemoglobin A1c is pending. Continue insulin sliding scale for coverage and Glimepiride 4 mg p.o. b.i.d. 7. Lumbosacral radiculopathy. Continue with current analgesic regimen and PT. We will reconsider epidural injection when patient is medically optimized. 8. Hyperlipidemia. Continue Lipitor 80 mg p.o. daily. 9. BPH. Continue Flomax 0.4 mg p.o. daily. 10. Prophylaxis. GI prophylaxis not indicated as the patient is eating. Continue with Heparin for DVT prophylaxis. CODE STATUS: Full Code. Duncan Marinelli MD MTDJeanette
[2018-11-04] MEDS: HYDROmorphone 0.5 mg/0.5 ml ISec IVP PRN ×3 (12:24→20:20)
--- NOTE | 2018-11-04 12:42 | US ---
Date of service: 11/04/2018 HISTORY: jhoana COMPARISON: None. TECHNIQUE: Sonographic evaluation of the abdomen. FINDINGS: LIVER: Measures 15.1 cm. Patent portal vein. Portal venous flow: Hepatopetal. Unremarkable echogenicity of the liver parenchyma. No mass. No intrahepatic bile duct dilatation. GALLBLADDER: Unremarkable. No gallstones. COMMON BILE DUCT: Measures 4.8 mm. No stones. No dilatation. PANCREAS: Obscured by overlying bowel gas. Non diagnostic assessment of the pancreas RIGHT KIDNEY: Measures 4.2 x 9.3cm. Normal echogenicity. No calculus, mass, or hydronephrosis. LEFT KIDNEY: Measures 0.1 x 10.7cm. Normal echogenicity. No calculus, mass, or hydronephrosis. SPLEEN: Normal in size and contour. No mass. AORTA: Obscured by overlying bowel gas. Non diagnostic assessment of the aorta. IVC: Obscured by overlying bowel gas. Non diagnostic assessment of the aorta. OTHER FINDINGS: None. IMPRESSION: Unremarkable abdominal sonogram. Limitations of the current examination: Nonvisualization of pancreas, aorta and IVC
[2018-11-04 13:07] LABS: HEPATITIS B SURFACE AG Negative (NEGATIVE)
[2018-11-04 13:13] LABS: HEPATITIS A IGM NEGATIVE (NEGATIVE); HEPATITIS B CORE AB NEGATIVE (NEGATIVE)
[2018-11-04 13:24] LABS: HEPATITIS C ANTIBODY NEGATIVE (NEGATIVE)
--- NOTE | 2018-11-04 13:38 | CARD ---
APPROVED REPORT Date of service: 11/04/2018 EKG Measurement Heart [id number] <Conclusion> Atrial fibrillation with premature ventricular complexes Inferior infarct, age undetermined Abnormal ECG
[2018-11-04] MEDS ORDERED: Petrolatum Oint Foilpak (5 gm) TOP PRN (15:01)
--- NOTE | 2018-11-04 15:26 | CP.PCM.APN ---
Subjective - Date & Time of Evaluation Date of Evaluation: 11/04/18 Time of Evaluation: 09:30 - Subjective Subjective: Pt. seen and examined at bedside, appears uncomfortable , complaining pain to lower back. Denied palpitations, denied chest discomfort. Denied dyspnea. Objective - Vital Signs/Intake and Output Vital Signs (last 24 hours): Temp Pulse Resp BP Pulse Ox 98.5 F 100 H 18 130/73 92 L 11/04/18 07:40 11/04/18 10:00 11/04/18 07:40 11/04/18 09:42 11/04/18 07:40 Intake and Output: 11/04/18 11/04/18 06:59 18:59 Intake Total 900 Output Total 1100 Balance -200 - Medications Medications: Current Medications Albuterol/Ipratropium (Duoneb 3 Mg/0.5 Mg (3 Ml) Ud) 3 ml IH [id number] [facility] Last Admin: 11/04/18 11:08 Dose: Not Given Aspirin (Ecotrin) 81 mg PO DAILY [facility] Last Admin: 11/04/18 09:42 Dose: 81 mg Atenolol (Tenormin) 25 mg PO BID [facility] Last Admin: 11/04/18 09:42 Dose: 25 mg Atorvastatin Calcium (Lipitor) 80 mg PO DIN [facility] Last Admin: 11/03/18 17:19 Dose: 80 mg Digoxin (Digoxin) 0.125 mg PO MWF@1400 [facility] Docusate Sodium (Colace) 100 mg PO BID [facility] Last Admin: 11/04/18 09:42 Dose: 100 mg Doxycycline Hyclate (Doryx) 100 mg PO Q12 [facility]; Protocol Stop: 11/13/18 10:01 Last Admin: 11/04/18 09:42 Dose: 100 mg Emollient Ointment (Vaseline Oint) 5 gm TOP TID PRN PRN Reason: DRY SKIN Enoxaparin Sodium (Lovenox) 90 mg SC Q24H [facility]; Protocol Last Admin: 11/03/18 17:22 Dose: 90 mg Glimepiride (Amaryl) 4 mg PO BID [facility] Last Admin: 11/04/18 09:42 Dose: 4 mg Hydromorphone HCl (Dilaudid) 0.5 mg IVP Q4H PRN PRN Reason: Pain, severe (8-10) Last Admin: 11/04/18 12:24 Dose: 0.5 mg Cefepime HCl (Maxipime 1gm) 1 gm in 100 mls @ 100 mls/hr IVPB Q24H [facility]; Protocol Stop: 11/12/18 23:01 Last Admin: 11/03/18 23:39 Dose: 100 mls/hr Insulin Human Regular (Humulin R Med) 0 units SC ACHS [facility]; Protocol Last Admin: 11/04/18 12:24 Dose: 3 unit Ondansetron HCl (Zofran Inj) 4 mg IVP Q6H PRN PRN Reason: Nausea/Vomiting Last Admin: 11/02/18 11:20 Dose: 4 mg Oxycodone/Acetaminophen (Percocet 5/325 Mg Tab) 2 tab PO Q6H PRN PRN Reason: Pain, moderate (4-7) Stop: 11/07/18 08:10 Sennosides (Senokot Tab) 17.2 mg PO HS [facility] Last Admin: 11/03/18 21:48 Dose: 17.2 mg Tamsulosin HCl (Flomax) 0.4 mg PO DAILY [facility] Last Admin: 11/04/18 09:42 Dose: 0.4 mg - Labs Labs: 11/04/18 06:25 11/04/18 06:25 PT 14.9 SECONDS (9.4-12.5) H 10/30/18 00:55 INR 1.34 10/30/18 00:55 APTT 30.8 Seconds (26.9-38.3) 10/30/18 00:55 Assessment and Plan - Assessment and Plan (Free Text) Assessment: ITS Impressions Lumbar Spine CT 10/30/18 00:44 IMPRESSION: Markedly severe erosive changes at L1-2. No acute fracture. Spinal stenosis at L1-2 with soft tissue swelling possibly representing underlying inflammatory component. Otherwise multilevel degenerative disc disease, spondylosis and osteopenia. Lumbar Spine MRI 10/30/18 06:25 IMPRESSION: Severe degenerative changes are seen in the L1 L2 disc space. The disc space is filled with fluid. Severe degenerative changes of been seen at this level since the CT of 2011. Therefore this most likely represents progression of degeneration rather than discitis. There is no evidence of marrow edema to suggest acute infection. The disc bulge and facet arthropathy produces a severe degree of spinal stenosis at this level. Chest X-Ray 11/03/18 10:10 IMPRESSION: Possible left basilar pneumonia. Follow-up advised. Abdomen Ultrasound 11/03/18 22:54 IMPRESSION: Unremarkable abdominal sonogram. Limitations of the current examination: Nonvisualization of pancreas, aorta and IVC Microbiology 11/03/18 13:40 Blood-Venous Blood Culture - Preliminary NO GROWTH AFTER 24 HOURS 11/03/18 13:10 Blood-Venous Blood Culture - Preliminary NO GROWTH AFTER 24 HOURS 11/02/18 13:30 Urine,Catheterized Urine Culture - Final Enterococcus Faecalis No Known Allergies Allergy (Verified 10/30/18 00:22) 83yo male with pmhx of hypertension, Diabetes, chronic back pain, OA of the left knee who presented for complaint of severe lower back pain x2days. Per patient's family by the bedside patient have always had lower back pain and refused to take any medication or see a specialist but the pain became worse 2days ago, admitted for further eval and treatment. Plan: 1. Lower back pain most likely r/t Lumbarsacral radiculopathy, spinal stenosis, degenerative disc disease. cont. pain meds as ordered. 2. Htn cont current meds 3. RAYRAY Improved with IVF maybe r/t dehydration, cont IVF bladder scan showed no retention, trend bun/creatinine 4. UTI UA positive, cx resulted Enterococcus Faecium, Antibiotics ordered per I.D. 5. Left basilar pneumonia/ Antibiotics per I.D. 6. Atrial Fibrillation Cardiology consulted, IV Digoxin 1 x dose, given, daily ordered. Lovenox, Beta Bailey as per card. 7. Positive Troponin, downtrending, maybe r/t to acute kidney injury, will monitor on remote telemetry lexiscan stress test completed today, f/u results. Will continue to monitor clinical status and follow closely. PT rec acute rehab, SW/CM planning for dc to [facility] vs. acute rehab when cleared by cardiology, I.D.
[2018-11-04] MEDS: Enoxaparin 100 mg Syringe SC SCH (15:29)
[2018-11-04] MEDS ORDERED: Sodium Chloride 0.9% 100 ML IV SCH ×2 (15:30)
--- NOTE | 2018-11-04 19:28 | CARD ---
APPROVED REPORT Date of service: 11/04/2018 EXAM: Two-dimensional and M-mode echocardiogram with Doppler and color Doppler. INDICATION Chest Pain 2D DIMENSIONS Left Atrium (2D)3.7 (1.6-4.0cm)IVSd1.5 (0.7-1.1cm) LVDd3.5 (3.9-5.9cm)PWd1.4 (0.7-1.1cm) LVDs2.5 (2.5-4.0cm)FS (%) 28.1 % LVEF (%)55.4 (>50%) M-Mode DIMENSIONS Aortic Root3.30 (2.2-3.7cm)Aortic Cusp Exc.1.30 (1.5-2.0cm) Aortic Valve AoV Peak Nghjtmvq810.0cm/Brandi Peak GR.11mmHg Mitral Valve E/A ratio0.0 TDI E/Lateral E'0.0E/Medial E'0.0 Tricuspid Valve TR Peak [id number]/sRAP [id number] Peak Gr.21mmHg [id number] LEFT VENTRICLE The left ventricle is normal size. There is mild concentric left ventricular hypertrophy. The left ventricular function is normal.EF-55% There is normal LV segmental wall motion. diastolic Fx. can not be assessed as pt is in A fib. No left ventricle thrombus noted on this study. There is no ventricular septal defect visualized. There is no left ventricular aneurysm. There is no mass noted in the left ventricle. RIGHT VENTRICLE The right ventricle is normal size. There is normal right ventricular wall thickness. The right ventricular systolic function is normal. ATRIA The left atrium is Borderline dilated in long axis The right atrium size is normal. The interatrial septum is intact with no evidence for an atrial septal defect. AORTIC VALVE The aortic valve is calcified and displays decreased opening. There is trace to mild aortic regurgitation. Mild , Non Coronary Cusp is Heavily calcified and Immobile. There is no aortic valvular vegetation. MITRAL VALVE The mitral valve is calcified but opens well. Mitral regurgitation is trace to mild. There is no mitral valve stenosis. There is no evidence of mitral valve prolapse. TRICUSPID VALVE The tricuspid valve leaflets are thickened , but open well. There is mild tricuspid regurgitation.RVSP-31 mmof Hg. There is no tricuspid valve stenosis. There is no tricuspid valve prolapse or vegetation. PULMONIC VALVE The pulmonary valve is normal in structure. There is trace pulmonic valvular regurgitation. There is no pulmonic valvular stenosis. GREAT VESSELS The aortic root is normal in size. The ascending aorta is normal in size. The pulmonary artery is normal. The IVC was not visualized. PERICARDIAL EFFUSION There is no pleural effusion. There is no pericardial effusion. <Conclusion> The left ventricle is normal size. There is mild concentric left ventricular hypertrophy. The left ventricular function is normal.EF-55% diastolic Fx. can not be assessed as pt is in A fib. Mild , Non Coronary Cusp is Heavily calcified and Immobile. There is trace to mild aortic regurgitation. Mitral regurgitation is trace to mild. There is mild tricuspid regurgitation.RVSP-31 mmof Hg. The IVC was not visualized. There is no pericardial effusion. no Vegetation or thrombus noted.
[2018-11-04] MEDS ORDERED: Vancomycin 1gm in NS 250ml 1 GM/250 ML BAG IVPB STA (20:28)
[2018-11-04] MEDS: Cefepime 1gm in NS 100ml 1 GM/100 ML BAG IVPB SCH (23:11)
[2018-11-05] MEDS: Albuterol-Ipratrop 3 mg / 0.5 (3 ml) UD IH SCH ×7 (01:56→23:40)
[2018-11-05] MEDS: Sodium Chloride 0.9% 1,000 ML IV SCH (01:59)
[2018-11-05] MEDS: HYDROmorphone 0.5 mg/0.5 ml ISec IVP PRN ×3 (02:03→21:04)
[2018-11-05] MEDS: Oxycodone/Acetaminophen 5/325 mg Tab PO PRN ×2 (06:07→15:43)
[2018-11-05 06:35] LABS: CALCIUM 9.4 mg/dL (8.4-10.5)
[2018-11-05 06:42] LABS: HEMOGLOBIN 10.2 g/dL (14.0-18.0); MEAN CELL VOLUME 94.5 fl (80.0-105.0); MEAN CORPUSCULAR HEMOGLOBIN 29.7 pg (25.0-35.0); MEAN CORPUSCULAR HGB CONC 31.4 g/dl (31.0-37.0); MEAN PLATELET VOLUME 10.8 fl (7.0-11.0); RBC 3.44 10^6/uL (3.5-6.1); WHITE BLOOD COUNT 13.6 10^3/uL (4.5-11.0)
[2018-11-05 06:50] LABS: TROPONIN I 0.34 ng/mL
--- NOTE | 2018-11-05 07:48 | CP.PCM.PN ---
Subjective - Date & Time of Evaluation Date of Evaluation: 11/05/18 Time of Evaluation: 06:45 - Subjective Subjective: Awake, no distress, off and on confusion Reason for consultation and follow up: Cardiac evaluation of new onset atrial fibrillation Seen and examined by me and Dr. Gill Objective - Vital Signs/Intake and Output Vital Signs (last 24 hours): Temp Pulse Resp BP Pulse Ox 98.1 F 74 20 149/56 L 94 L 11/05/18 00:30 11/05/18 06:00 11/05/18 00:30 11/05/18 00:30 11/05/18 00:30 Intake and Output: 11/05/18 11/05/18 06:59 18:59 Intake Total 400 Output Total 1400 Balance -1000 - Medications Medications: Current Medications Albuterol/Ipratropium (Duoneb 3 Mg/0.5 Mg (3 Ml) Ud) 3 ml IH [id number] [facility] Last Admin: 11/05/18 07:37 Dose: 3 ml Aspirin (Ecotrin) 81 mg PO DAILY [facility] Last Admin: 11/04/18 09:42 Dose: 81 mg Atenolol (Tenormin) 25 mg PO BID [facility] Last Admin: 11/04/18 17:49 Dose: 25 mg Atorvastatin Calcium (Lipitor) 80 mg PO DIN [facility] Last Admin: 11/04/18 17:53 Dose: 80 mg Digoxin (Digoxin) 0.125 mg PO MWF@1400 [facility] Docusate Sodium (Colace) 100 mg PO BID [facility] Last Admin: 11/04/18 17:49 Dose: 100 mg Doxycycline Hyclate (Doryx) 100 mg PO Q12 [facility]; Protocol Stop: 11/13/18 10:01 Last Admin: 11/04/18 21:07 Dose: 100 mg Emollient Ointment (Vaseline Oint) 5 gm TOP TID PRN PRN Reason: DRY SKIN Enoxaparin Sodium (Lovenox) 90 mg SC Q24H [facility]; Protocol Last Admin: 11/04/18 15:29 Dose: 90 mg Glimepiride (Amaryl) 4 mg PO BID [facility] Last Admin: 11/04/18 17:49 Dose: 4 mg Hydromorphone HCl (Dilaudid) 0.5 mg IVP Q4H PRN PRN Reason: Pain, severe (8-10) Last Admin: 11/05/18 02:03 Dose: 0.5 mg Cefepime HCl (Maxipime 1gm) 1 gm in 100 mls @ 100 mls/hr IVPB Q24H [facility]; Protocol Stop: 11/12/18 23:01 Last Admin: 11/04/18 23:11 Dose: 100 mls/hr Sodium Chloride (Sodium Chloride 0.9%) 1,000 mls @ 100 mls/hr IV .Q10H [facility] Last Admin: 11/05/18 01:59 Dose: 100 mls/hr Insulin Human Regular (Humulin R Med) 0 units SC ACHS [facility]; Protocol Last Admin: 11/04/18 21:15 Dose: Not Given Ondansetron HCl (Zofran Inj) 4 mg IVP Q6H PRN PRN Reason: Nausea/Vomiting Last Admin: 11/02/18 11:20 Dose: 4 mg Oxycodone/Acetaminophen (Percocet 5/325 Mg Tab) 2 tab PO Q6H PRN PRN Reason: Pain, moderate (4-7) Stop: 11/07/18 08:10 Last Admin: 11/05/18 06:07 Dose: 2 tab Sennosides (Senokot Tab) 17.2 mg PO HS [facility] Last Admin: 11/04/18 21:08 Dose: 17.2 mg Tamsulosin HCl (Flomax) 0.4 mg PO DAILY [facility] Last Admin: 11/04/18 09:42 Dose: 0.4 mg - Labs Labs: 11/05/18 06:00 11/05/18 06:00 PT 14.9 SECONDS (9.4-12.5) H 10/30/18 00:55 INR 1.34 10/30/18 00:55 APTT 30.8 Seconds (26.9-38.3) 10/30/18 00:55 - Constitutional Appears: Non-toxic, No Acute Distress - Head Exam Head Exam: NORMAL INSPECTION, NORMOCEPHALIC - Eye Exam Eye Exam: Normal appearance Pupil Exam: NORMAL ACCOMODATION - ENT Exam ENT Exam: Mucous Membranes Moist - Cardiovascular Exam Cardiovascular Exam: Irregular Rhythm, +S1, +S2 Additional comments: Telemetry atrial fibrillation 70-80's - GI/Abdominal Exam GI & Abdominal Exam: Soft, Normal Bowel Sounds - Exam Additional comments: pinto catheter - Extremities Exam Extremities Exam: Full ROM, Normal Capillary Refill - Neurological Exam Neurological Exam: Alert, Awake Additional comments: confuse at times - Psychiatric Exam Psychiatric exam: Normal Affect, Normal Mood - Skin Skin Exam: Dry, Normal Color, Warm Assessment and Plan - Assessment and Plan (Free Text) Assessment: An 83 year old male who came in to [facility] Same day procedure for epidural injection for severe back pain. In [facility] , he was found to be in atrial fibrillation thus was sent to the ER. History of chronic back pain due to lumbosacral dege nerative joint disease,hypertension, diabetes, osteoarthritis, walks with cane. Patient has renal insufficiency with creatinine of 1.7/2.3. Creatinine clearance of 36. Uncontrolled diabetes, new onset atrial fibrillation. Denies chest pain. Troponin elevated 0.36/0.32/0.26/0.26. probably secondary to renal insufficiency but cannot rule out coronary artery disease. He is not a candidate for cardiac catheterization now due to renal insufficency. Patient denies chest pain or shortness of breath. Digoxin IV given for atrial fibrillation. Started on Atenolol low dose due to low systolic blood pressure.chest X ray showed left basilar pneumonia. ID on consult. IV antibiotics. Echo done and showed LVEF 55%,diastolic function cannot assess due to atrial fibrillation, non coronary cusp heavily calcified and immobile, trace Ar, trace to mild MR, mild TR RVSP 31 mmHg, no pericardial effusion or thrombus. For stress test today but will hold, patient is off and on confuse. Urine culture positive for Enterococcus faecalis. Plan: Echo done and showed LVEF 55%,diastolic function cannot assess due to atrial fibrillation, non coronary cusp heavily calcified and immobile, trace AR, trace to mild MR, mild TR RVSP 31 mmHg, no pericardial effusion or thrombus Will hold off Stress test today, patient off and on confusion Controlled heart rate on 70-80's atrial fibrillation after starting Digoxin Blood pressure controlled On ASA 81 mg daily, Norvasc 10 mg daily, Tenormin 12.5 mg BID, Lipitor 80 mg daily,Flomax 0.4 mg daily,Digoxin 0.125 mg po every MWF Will hold Norvasc for now for low blood pressure Continue current medications Continue current treatment Continue IV antibiotics per ID Pain management Will follow up Pain management Plan and treatment discussed with Dr. Gill
[2018-11-05] MEDS: Insulin Reg-MEDIUM-Coverage SC SCH ×4 (08:59→22:16)
--- NOTE | 2018-11-05 09:59 | PN ---
SUBJECTIVE: The patient was seen and examined at bedside on the remote telemetry willis. No acute events overnight. He remains afebrile, hemodynamically stable and chest pain free. This morning he reports some improvement in his low back pain and overall offers no complaints. OBJECTIVE: VITAL SIGNS: Temperature 98.1, pulse 74, blood pressure 149/56, respiratory rate 20, oxygen saturation 94% on room air. GENERAL: Elderly man, appearing his stated age, lying in bed in no apparent distress. HEENT: PERRL, EOMI. No scleral icterus. No conjunctival pallor. NECK: No JVD. LUNGS: Decreased breath sounds at the bases. CARDIOVASCULAR: Irregularly irregular. Normal S1, S2. ABDOMEN: Normoactive bowel sounds, soft, nontender, nondistended. EXTREMITIES: No edema. NEUROLOGIC: Awake, alert and oriented x 3. Nonfocal motor deficits. LABORATORY DATA: WBC 13.6, hemoglobin 10, hematocrit 33, platelets 285. Sodium 140, potassium 4.3, chloride 108, bicarb 26, BUN 53, creatinine 1.7, glucose 237. Hemoglobin A1c 7.1. Procalcitonin 0.47. Blood cultures with no growth to date. Urine culture with Enterococcus faecalis with sensitivities noted. IMAGING STUDIES: Abdominal ultrasound demonstrated no acute pathology. DIAGNOSTIC STUDIES: TTE demonstrated normal LV size and function with EF of 55% and no evidence of vegetation or thrombus. ASSESSMENT: The patient is an 83-year-old man with a past medical history of hypertension and non-insulin dependent diabetes mellitus who presented with a several day history of low back pain was admitted for pain control and PT evaluation whose hospital course was complicated by development of new onset Afib and healthcare- associated pneumonia. PLAN: 1. AFib, new onset. Input from Dr. Gill noted. The patient remains rate controlled. Continue therapeutic Lovenox, Aspirin 81 mg p.o. daily, Atenolol 25 mg p.o. b.i.d and Digoxin. 2. Elevated troponin, consider secondary to impaired renal clearance vs NSTEMI. Input from Dr. Gill noted. The scheduled stress test was postponed due to renal insufficiency. Continue with care as above. 3. Healthcare-associated pneumonia. Input from Dr. Middleton noted. The patient remains afebrile and with negative blood cultures. Continue with current antimicrobials. Procalcitonin unremarkable. 4. Hypertension. Blood pressure controlled. Continue Atenolol 25 mg p.o. b.i.d and Norvasc 10 mg p.o. daily. 5. 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 Abdominal ultrasound reviewed and negative for acute pathology. Continue with gentle IV fluid hydration, monitor strict I&O's, renally dose medications and avoid nephrotoxins. 6. NIDDM. Most recent A1c of 7.1. Continue insulin sliding scale for coverage, Glimepiride 4 mg p.o. b.i.d. and start Januvia 50 mg p.o. daily. 7. Lumbosacral radiculopathy. Continue with current analgesic regimen. Continue with PT. We will reconsider epidural injection when the patient is medically optimized. 8. Hyperlipidemia. Continue Lipitor 80 mg p.o. daily. 9. Anemia of chronic disease. Labs demonstrate Hb at baseline of 10. Continue to monitor CBC daily. 10. BPH. Continue Flomax 0.4 mg p.o. daily. 11. Prophylaxis. GI prophylaxis not indicated as the patient is eating. DVT prophylaxis not indicated as the patient remains on therapeutic Lovenox. CODE STATUS: Full code. Duncan Marinelli MD MTDD
[2018-11-05] MEDS ORDERED: Vancomycin 1gm in NS 250ml 1 GM/250 ML BAG IVPB STA (11:16)
--- NOTE | 2018-11-05 11:38 | CP.PCM.CON ---
History of Present Illness - History of Present Illness History of Present Illness: Palliative consult requested by Dr Hailey Marinelli Reason: Advance care planning 83 year old male who presented to ED on with low back pain> Kira now unable to walk due to pain. Denied fever chills nausea,vomiting, abdominal pain, headache, shortness of breath CT Lumbar spine: Severe erosive changes at L 1-2. No acute fracture. Spinal stenosis with soft tissue swelling at L 1-2. MRI of Lumbar spine: Severe degenerative changes L1,L2.disc space filed with fluid. Progression of degereration rahterthan discsis whenn compared to CT of 2012.Severe spinal stenosis at this level. Chest x ray: Possible left basilar pneumonia Abdominal sonogram: unremarkable ECHO: EF 55%,Non coronary cup is heavily calcified and immobile trace AR,MR,TR PMHx: HTN, DM,CKD, osteoarthritis of left knee Social History: Former cigar smoker, no alcohol or drug use. . Family History: Non contributory Review of Systems: As per HPI, 12 point review otherwise negative Past Patient History - Infectious Disease Hx of Infectious Diseases: None - Past Social History Smoking Status: CIGARS - CARDIAC Hx Cardiac Disorders: Yes Hx Hypertension: Yes - PULMONARY Hx Respiratory Disorders: No - NEUROLOGICAL Hx Neurological Disorder: No - HEENT Hx HEENT Problems: No - RENAL Hx Chronic Kidney Disease: No - ENDOCRINE/METABOLIC Hx Endocrine Disorders: Yes Hx Diabetes Mellitus Type 2: Yes - HEMATOLOGICAL/ONCOLOGICAL Hx Blood Transfusions: No - INTEGUMENTARY Hx Dermatological Problems: No - MUSCULOSKELETAL/RHEUMATOLOGICAL Hx Musculoskeletal Disorders: Yes Hx Back Pain: Yes Hx Osteoarthritis: Yes (LEFT KNEE) - GASTROINTESTINAL Hx Gastrointestinal Disorders: No - GENITOURINARY/GYNECOLOGICAL Hx Genitourinary Disorders: Yes Hx Incontinence: Yes - PSYCHIATRIC Hx Psychophysiologic Disorder: No - SURGICAL HISTORY Hx Surgeries: No Meds Allergies/Adverse Reactions: Allergies Allergy/AdvReac Type Severity Reaction Status Date / Time No Known Allergies Allergy Verified 10/30/18 00:22 - Medications Medications: Current Medications Albuterol/Ipratropium (Duoneb 3 Mg/0.5 Mg (3 Ml) Ud) 3 ml IH [id number] [facility] Last Admin: 11/05/18 11:17 Dose: 3 ml Amlodipine Besylate (Norvasc) 10 mg PO DAILY [facility] Last Admin: 11/05/18 10:34 Dose: 10 mg Aspirin (Ecotrin) 81 mg PO DAILY [facility] Last Admin: 11/05/18 10:34 Dose: 81 mg Atenolol (Tenormin) 25 mg PO BID [facility] Last Admin: 11/05/18 10:33 Dose: 25 mg Atorvastatin Calcium (Lipitor) 80 mg PO DIN [facility] Last Admin: 11/04/18 17:53 Dose: 80 mg Digoxin (Digoxin) 0.125 mg PO MWF@1400 [facility] Docusate Sodium (Colace) 100 mg PO BID [facility] Last Admin: 11/05/18 10:35 Dose: 100 mg Doxycycline Hyclate (Doryx) 100 mg PO Q12 [facility]; Protocol Stop: 11/13/18 10:01 Last Admin: 11/05/18 10:34 Dose: 100 mg Emollient Ointment (Vaseline Oint) 5 gm TOP TID PRN PRN Reason: DRY SKIN Enoxaparin Sodium (Lovenox) 90 mg SC Q24H [facility]; Protocol Last Admin: 11/04/18 15:29 Dose: 90 mg Glimepiride (Amaryl) 4 mg PO BID [facility] Last Admin: 11/05/18 10:35 Dose: 4 mg Hydromorphone HCl (Dilaudid) 0.5 mg IVP Q4H PRN PRN Reason: Pain, severe (8-10) Last Admin: 11/05/18 02:03 Dose: 0.5 mg Cefepime HCl (Maxipime 1gm) 1 gm in 100 mls @ 100 mls/hr IVPB Q24H [facility]; Protocol Stop: 11/12/18 23:01 Last Admin: 11/04/18 23:11 Dose: 100 mls/hr Sodium Chloride (Sodium Chloride 0.9%) 1,000 mls @ 100 mls/hr IV .Q10H [facility] Last Admin: 11/05/18 01:59 Dose: 100 mls/hr Vancomycin HCl (Vancomycin 1gm) 1 gm in 250 mls @ 167 mls/hr IVPB STAT [facility]; Protocol Stop: 11/05/18 12:45 Insulin Human Regular (Humulin R Med) 0 units SC ACHS [facility]; Protocol Last Admin: 11/05/18 08:59 Dose: 3 unit Ondansetron HCl (Zofran Inj) 4 mg IVP Q6H PRN PRN Reason: Nausea/Vomiting Last Admin: 11/02/18 11:20 Dose: 4 mg Oxycodone/Acetaminophen (Percocet 5/325 Mg Tab) 2 tab PO Q6H PRN PRN Reason: Pain, moderate (4-7) Stop: 11/07/18 08:10 Last Admin: 11/05/18 06:07 Dose: 2 tab Sennosides (Senokot Tab) 17.2 mg PO HS [facility] Last Admin: 11/04/18 21:08 Dose: 17.2 mg Sitagliptin Phosphate (Januvia) 25 mg PO DAILY [facility] Last Admin: 11/05/18 10:35 Dose: 25 mg Tamsulosin HCl (Flomax) 0.4 mg PO DAILY [facility] Last Admin: 11/05/18 10:35 Dose: 0.4 mg Physical Exam - Constitutional Appears: No Acute Distress, Chronically Ill - Eye Exam Eye Exam: Normal appearance, PERRL - ENT Exam ENT Exam: Mucous Membranes Moist, Normal Oropharynx - Neck Exam Neck exam: Positive for: Normal Inspection - Respiratory Exam Respiratory Exam: Decreased Breath Sounds, NORMAL BREATHING PATTERN - Cardiovascular Exam Cardiovascular Exam: REGULAR RHYTHM, +S1, +S2 - GI/Abdominal Exam GI & Abdominal Exam: Normal Bowel Sounds, Soft - Back Exam Back exam: vertebral tenderness - Neurological Exam Neurological exam: Alert Additional comments: confused - Skin Skin Exam: Dry, Pallor, Warm - Additional Findings Additional findings: Palliative performance scale 40% Results - Vital Signs Recent Vital Signs: Last Vital Signs Temp 96.3 F L 11/05/18 08:58 Pulse 61 11/05/18 10:33 Resp 18 11/05/18 08:58 BP 148/71 11/05/18 10:34 Pulse Ox 91 L 11/05/18 08:58 - Labs Result Diagrams: 11/05/18 06:00 11/05/18 06:00 Labs: Laboratory Results - last 24 hr 11/04/18 11/04/18 11/04/18 06:25 06:25 06:25 WBC RBC Hgb Hct MCV MCH MCHC RDW Plt Count MPV Sodium Potassium Chloride Carbon Dioxide Anion Gap BUN Creatinine Est GFR ( Amer) Est GFR (Non-Af Amer) POC Glucose (mg/dL) Random Glucose Hemoglobin A1c 7.1 H Calcium Lactate Dehydrogenase Total Creatine Kinase Troponin I Procalcitonin 0.47 Hepatitis A IgM Ab Negative Hep Bs Antigen Negative Hep B Core IgM Ab Negative Hepatitis C Antibody Negative 11/04/18 11/04/18 11/04/18 11:39 16:22 21:10 WBC RBC Hgb Hct MCV MCH MCHC RDW Plt Count MPV Sodium Potassium Chloride Carbon Dioxide Anion Gap BUN Creatinine Est GFR ( Amer) Est GFR (Non-Af Amer) POC Glucose (mg/dL) 245 H 233 H 204 H Random Glucose Hemoglobin A1c Calcium Lactate Dehydrogenase Total Creatine Kinase Troponin I Procalcitonin Hepatitis A IgM Ab Hep Bs Antigen Hep B Core IgM Ab Hepatitis C Antibody 11/05/18 11/05/18 11/05/18 06:00 06:00 07:33 WBC 13.6 H RBC 3.44 L Hgb 10.2 L Hct 32.5 L MCV 94.5 MCH 29.7 MCHC 31.4 RDW 14.0 Plt Count 285 MPV 10.8 Sodium 140 Potassium 4.3 Chloride 108 H Carbon Dioxide 26 Anion Gap 11 BUN 53 H Creatinine 1.7 H Est GFR ( Amer) 47 Est GFR (Non-Af Amer) 39 POC Glucose (mg/dL) 245 H Random Glucose 237 H Hemoglobin A1c Calcium 9.4 Lactate Dehydrogenase 459 Total Creatine Kinase 38 Troponin I 0.34 H* D Procalcitonin Hepatitis A IgM Ab Hep Bs Antigen Hep B Core IgM Ab Hepatitis C Antibody Assessment & Plan - Assessment and Plan (Free Text) Assessment: 83 year old male with hsity of HTN,DM, OA who is admitted with severe pain of lumbosacral spine,left left sided HCAP, sepsis, UTI, A Fib and altered mental status Palliative team met with patient to discuss advance care planning.The patient has an advanced directive (2007) a copy is in the chart. The directive states that patient waggoner not want aggressive resuscitation cpr/intubation, artificial feeding or dialysis if his condition is terminal or irreversible. The patient's son Tal Valero is his health care proxy. The patient is confused and is unable to is engage in additional advance care planning discussion at this time Will reach out to POA. Time spent with patient in advance care planning discussion, 15 minutes Plan: Advance care planning HCAP/UTI/sepsis:ID recs reviewed, Continue Maxipime and Doxycycline A Fib/HTN: Cardiology recs reviewed, Continue Digoxin, Norvasc, Ecotrin, Tenromin, Lipitor DM: Fingerstsicks ACHS, Januvia, Humulin as orderd
--- NOTE | 2018-11-05 11:54 | PQF ---
PROVIDER RESPONSE TEXT: The patient has sepsis secondary to healthcare associated pneumonia REVIEWER QUERY TEXT: Rule Out Sepsis Clarification Rule out Sepsis is documented in the Medical Record. Please clarify whether: -- Patient has sepsis - Please document confirmed, suspected or probable causative organism - Please document confirmed, suspected or probable localized infection - Please clarify if sepsis is related to a device - Please clarify if sepsis was present on admission -- Sepsis was ruled out (include corresponding diagnosis for patient?s clinical picture and treatment ) -- Patient had sepsis which is resolved -- Other, please specify The patient's Clinical Indicators include: ID employee relations consultant noted severe sepsis due to HCAP. Please document if you concur with this diagnosis. Query created by: Shania Sorto on 11/05/2018 11:04 AM Electronically signed by: Duncan Marinelli MD, MD 11/05/2018 11:51 AM
--- NOTE | 2018-11-05 16:57 | CP.PCM.PCO ---
Physician Communication Note - Physician Communication Note Physician Communication Note: pt. cardiac cleared per ,medically cleared per pmd,no epidural plan
--- NOTE | 2018-11-05 17:08 | PN ---
DATE: 11/05/2018 SUBJECTIVE: The patient is in bed, in no acute distress, still with pain. PHYSICAL EXAMINATION: VITAL SIGNS: On exam, temperature is 96, blood pressure is 158/70, respiratory rate of 18, heart rate of 76. HEENT: Examination of HEENT is unremarkable. NECK: Supple. LUNGS: Have decreased breath sounds. HEART: Normal S1, S2. ABDOMEN: Soft. LABORATORY DATA: Laboratory examination reveals a white count of 13,600, hemoglobin of 10 and the chemistries reveals a BUN of 33, creatinine of 1.7. The patient's troponin is noted and procalcitonin reveals to be 0.47. Review of microbiology reveals a urine culture as sensitive Enterococcus to ampicillin. The blood cultures are negative and the patient's chest x-ray is reviewed; left opacity and Dr. Duncan Marinelli's note. ASSESSMENT AND PLAN: An 83-year-old was admitted with chronic back pain with severe sepsis, left-sided healthcare-associated pneumonia and acute kidney injury, lumbosacral radiculopathy on Maxipime and doxycycline with an Enterococcus in the urine and today is day # 3 of antibiotics. With the patient's white count of 13,600, concerned about the white count of 13,600 and the patient's Enterococcus.. We will give another dose of vancomycin and follow the WBC count. Peewee Middleton MD
[2018-11-05] MEDS: Enoxaparin 100 mg Syringe SC SCH (19:22)
[2018-11-05] MEDS: Cefepime 1gm in NS 100ml 1 GM/100 ML BAG IVPB SCH (22:53)
[2018-11-06] MEDS: HYDROmorphone 0.5 mg/0.5 ml ISec IVP PRN ×6 (01:02→23:23)
[2018-11-06] MEDS: Sodium Chloride 0.9% 1,000 ML IV SCH ×3 (01:14→17:01)
[2018-11-06] MEDS: Albuterol-Ipratrop 3 mg / 0.5 (3 ml) UD IH SCH ×5 (05:15→20:27)
[2018-11-06 06:58] LABS: HEMOGLOBIN 10.7 g/dL (14.0-18.0); MEAN CELL VOLUME 94.1 fl (80.0-105.0); MEAN CORPUSCULAR HEMOGLOBIN 30.3 pg (25.0-35.0); MEAN CORPUSCULAR HGB CONC 32.2 g/dl (31.0-37.0); MEAN PLATELET VOLUME 10.7 fl (7.0-11.0); RBC 3.53 10^6/uL (3.5-6.1); RED CELL DISTRIBUTION WIDTH 14.3 % (11.5-14.5); WHITE BLOOD COUNT 12.4 10^3/uL (4.5-11.0)
[2018-11-06 07:36] LABS: CALCIUM 9.8 mg/dL (8.4-10.5)
--- NOTE | 2018-11-06 07:59 | CP.PCM.PN ---
Subjective - Date & Time of Evaluation Date of Evaluation: 11/06/18 Time of Evaluation: 06:45 - Subjective Subjective: Lying in bed, complaining of back pain, awake, no distress, off and on confusion Reason for consultation and follow up: Cardiac evaluation of new onset atrial fibrillation Seen and examined by me and Dr. Gill Objective - Vital Signs/Intake and Output Vital Signs (last 24 hours): Temp Pulse Resp BP Pulse Ox 97.9 F 78 18 155/76 H 94 L 11/05/18 23:40 11/06/18 06:00 11/05/18 23:40 11/05/18 23:40 11/05/18 23:40 Intake and Output: 11/06/18 11/06/18 06:59 18:59 Intake Total 1470 Output Total 2000 Balance -530 - Medications Medications: Current Medications Albuterol/Ipratropium (Duoneb 3 Mg/0.5 Mg (3 Ml) Ud) 3 ml IH [id number] [facility] Last Admin: 11/06/18 05:15 Dose: 3 ml Amlodipine Besylate (Norvasc) 10 mg PO DAILY [facility] Last Admin: 11/05/18 10:34 Dose: 10 mg Aspirin (Ecotrin) 81 mg PO DAILY [facility] Last Admin: 11/05/18 10:34 Dose: 81 mg Atenolol (Tenormin) 25 mg PO BID [facility] Last Admin: 11/05/18 17:50 Dose: 25 mg Atorvastatin Calcium (Lipitor) 80 mg PO DIN [facility] Last Admin: 11/05/18 17:51 Dose: 80 mg Digoxin (Digoxin) 0.125 mg PO MWF@1400 [facility] Docusate Sodium (Colace) 100 mg PO BID [facility] Last Admin: 11/05/18 17:51 Dose: 100 mg Doxycycline Hyclate (Doryx) 100 mg PO Q12 [facility]; Protocol Stop: 11/13/18 10:01 Last Admin: 11/05/18 21:05 Dose: 100 mg Emollient Ointment (Vaseline Oint) 5 gm TOP TID PRN PRN Reason: DRY SKIN Enoxaparin Sodium (Lovenox) 90 mg SC Q24H [facility]; Protocol Last Admin: 11/05/18 19:22 Dose: 90 mg Fentanyl (Duragesic) 1 patch TD Q72H [facility] Last Admin: 11/05/18 18:19 Dose: 1 patch Glimepiride (Amaryl) 4 mg PO BID [facility] Last Admin: 11/05/18 17:49 Dose: 4 mg Hydromorphone HCl (Dilaudid) 0.5 mg IVP Q4H PRN PRN Reason: Pain, severe (8-10) Last Admin: 11/06/18 05:46 Dose: 0.5 mg Cefepime HCl (Maxipime 1gm) 1 gm in 100 mls @ 100 mls/hr IVPB Q24H [facility]; Protocol Stop: 11/12/18 23:01 Last Admin: 11/05/18 22:53 Dose: 100 mls/hr Sodium Chloride (Sodium Chloride 0.9%) 1,000 mls @ 100 mls/hr IV .Q10H [facility] Last Admin: 11/06/18 01:14 Dose: 100 mls/hr Insulin Human Regular (Humulin R Med) 0 units SC ACHS [facility]; Protocol Last Admin: 11/05/18 22:16 Dose: Not Given Ondansetron HCl (Zofran Inj) 4 mg IVP Q6H PRN PRN Reason: Nausea/Vomiting Last Admin: 11/02/18 11:20 Dose: 4 mg Sennosides (Senokot Tab) 17.2 mg PO HS [facility] Last Admin: 11/05/18 21:06 Dose: 17.2 mg Sitagliptin Phosphate (Januvia) 25 mg PO DAILY [facility] Last Admin: 11/05/18 10:35 Dose: 25 mg Tamsulosin HCl (Flomax) 0.4 mg PO DAILY [facility] Last Admin: 11/05/18 10:35 Dose: 0.4 mg - Labs Labs: 11/06/18 06:20 11/06/18 06:20 PT 14.9 SECONDS (9.4-12.5) H 10/30/18 00:55 INR 1.34 10/30/18 00:55 APTT 30.8 Seconds (26.9-38.3) 10/30/18 00:55 - Constitutional Appears: Non-toxic, No Acute Distress - Head Exam Head Exam: NORMAL INSPECTION, NORMOCEPHALIC - Eye Exam Eye Exam: Normal appearance Pupil Exam: NORMAL ACCOMODATION - ENT Exam ENT Exam: Mucous Membranes Dry - Respiratory Exam Respiratory Exam: Decreased Breath Sounds, NORMAL BREATHING PATTERN - Cardiovascular Exam Cardiovascular Exam: Irregular Rhythm, +S1, +S2 Additional comments: Telemetry Atrial fibrillation, 70's - GI/Abdominal Exam GI & Abdominal Exam: Soft, Normal Bowel Sounds - Exam Additional comments: pinto catheter - Extremities Exam Extremities Exam: Full ROM - Back Exam Additional comments: chronic back pain - Neurological Exam Neurological Exam: Alert, Awake Additional comments: confused off and on - Psychiatric Exam Psychiatric exam: Normal Affect, Normal Mood - Skin Skin Exam: Dry, Normal Color, Warm Assessment and Plan - Assessment and Plan (Free Text) Assessment: An 83 year old male who came in to [facility] Same day procedure for epidural injection for severe back pain. In SDS , he was found to be in atrial fibrillation thus was sent to the ER. 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 Patient has renal insufficiency with creatinine of 1.7/2.3. Creatinine clearance of 36. Uncontrolled diabetes, new onset atrial fibrillation. Denies chest pain. Troponin elevated 0.36/0.32/0.26/0.26. probably secondary to renal insufficiency but cannot rule out coronary artery disease. He is not a candidate for cardiac catheterization now due to renal insufficency. Patient denies chest pain or shortness of breath. Digoxin IV given for atrial fibrillation. Started on Atenolol low dose due to low systolic blood pressure.chest X ray showed left basilar pneumonia. ID on consult. IV antibiotics. Echo done and showed LVEF 55%,diastolic function cannot assess due to atrial fibrillation, non coronary cusp heavily calcified and immobile, trace AR, trace to mild MR, mild TR RVSP 31 mmHg, no pericardial effusion or thrombus. Stress test cancelled,patient will not keep still for the procedure, patient is off and on confuse. Urine culture positive for Enterococcus faecalis. Seen by Palliative care, patient DNR/DNI. Atrial fibrillation controlled, will discontinue telemetry. Plan: Complaining of back pain, no distress Seen by palliative care, DNR/DNI Will discontinue telemetry Controlled heart rate on 70-80's atrial fibrillation Blood pressure controlled On ASA 81 mg daily, Norvasc 10 mg daily, Tenormin 12.5 mg BID, Lipitor 80 mg daily,Flomax 0.4 mg daily,Digoxin 0.125 mg po every MWF Continue current medications Continue current treatment Continue IV antibiotics per ID Pain management Will follow up Plan and treatment discussed with Dr. Gill
[2018-11-06] MEDS: Insulin Reg-MEDIUM-Coverage SC SCH ×4 (09:16→21:27)
--- NOTE | 2018-11-06 10:37 | CP.PCM.APN ---
Subjective - Date & Time of Evaluation Date of Evaluation: 11/06/18 Time of Evaluation: 09:05 - Subjective Subjective: Pt. seen and examined in bed, continues to complain of significant lower back pain, worse with movement, denied palpitations, denied chest discomfort, appears uncomfortable. Is oriented to person , place, asks how to get comfortable, was recommended, repositioning, and pain meds. Awaiting bone scan. Objective - Vital Signs/Intake and Output Vital Signs (last 24 hours): Temp Pulse Resp BP Pulse Ox 98.6 F 82 18 160/78 H 94 L 11/06/18 06:00 11/06/18 09:15 11/06/18 06:00 11/06/18 09:15 11/05/18 23:40 Intake and Output: 11/06/18 11/06/18 06:59 18:59 Intake Total 1470 Output Total 2000 Balance -530 - Medications Medications: Current Medications Albuterol/Ipratropium (Duoneb 3 Mg/0.5 Mg (3 Ml) Ud) 3 ml IH [id number] [facility] Last Admin: 11/06/18 08:35 Dose: 3 ml Amlodipine Besylate (Norvasc) 10 mg PO DAILY [facility] Last Admin: 11/06/18 09:15 Dose: 10 mg Aspirin (Ecotrin) 81 mg PO DAILY [facility] Last Admin: 11/06/18 09:15 Dose: 81 mg Atenolol (Tenormin) 25 mg PO BID [facility] Last Admin: 11/06/18 09:15 Dose: 25 mg Atorvastatin Calcium (Lipitor) 80 mg PO DIN [facility] Last Admin: 11/05/18 17:51 Dose: 80 mg Digoxin (Digoxin) 0.125 mg PO MWF@1400 [facility] Docusate Sodium (Colace) 100 mg PO BID [facility] Last Admin: 11/06/18 09:15 Dose: 100 mg Doxycycline Hyclate (Doryx) 100 mg PO Q12 [facility]; Protocol Stop: 11/13/18 10:01 Last Admin: 11/06/18 09:15 Dose: 100 mg Emollient Ointment (Vaseline Oint) 5 gm TOP TID PRN PRN Reason: DRY SKIN Enoxaparin Sodium (Lovenox) 90 mg SC Q24H [facility]; Protocol Last Admin: 11/05/18 19:22 Dose: 90 mg Fentanyl (Duragesic) 1 patch TD Q72H [facility] Last Admin: 11/05/18 18:19 Dose: 1 patch Glimepiride (Amaryl) 4 mg PO BID [facility] Last Admin: 11/06/18 09:15 Dose: 4 mg Hydromorphone HCl (Dilaudid) 0.5 mg IVP Q4H PRN PRN Reason: Pain, severe (8-10) Last Admin: 11/06/18 09:47 Dose: 0.5 mg Cefepime HCl (Maxipime 1gm) 1 gm in 100 mls @ 100 mls/hr IVPB Q24H [facility]; Protocol Stop: 11/12/18 23:01 Last Admin: 11/05/18 22:53 Dose: 100 mls/hr Sodium Chloride (Sodium Chloride 0.9%) 1,000 mls @ 100 mls/hr IV .Q10H [facility] Last Admin: 11/06/18 09:17 Dose: 100 mls/hr Insulin Human Regular (Humulin R Med) 0 units SC ACHS [facility]; Protocol Last Admin: 11/06/18 09:16 Dose: 3 unit Ondansetron HCl (Zofran Inj) 4 mg IVP Q6H PRN PRN Reason: Nausea/Vomiting Last Admin: 11/02/18 11:20 Dose: 4 mg Sennosides (Senokot Tab) 17.2 mg PO HS [facility] Last Admin: 11/05/18 21:06 Dose: 17.2 mg Sitagliptin Phosphate (Januvia) 25 mg PO DAILY [facility] Last Admin: 11/06/18 09:15 Dose: 25 mg Tamsulosin HCl (Flomax) 0.4 mg PO DAILY [facility] Last Admin: 11/06/18 09:15 Dose: 0.4 mg - Labs Labs: 11/06/18 06:20 11/06/18 06:20 PT 14.9 SECONDS (9.4-12.5) H 10/30/18 00:55 INR 1.34 10/30/18 00:55 APTT 30.8 Seconds (26.9-38.3) 10/30/18 00:55 Abnormal Lab Results 11/05/18 11/05/18 11/05/18 11:17 11:49 16:24 WBC RBC Hgb Hct MCV MCH MCHC RDW Plt Count MPV Sodium Potassium Chloride Carbon Dioxide Anion Gap BUN Creatinine Est GFR ( Amer) Est GFR (Non-Af Amer) POC Glucose (mg/dL) 242 H 206 H Random Glucose Calcium Prostate Specific Ag 110.0 H 11/05/18 11/06/18 11/06/18 21:17 06:20 06:20 WBC 12.4 H RBC 3.53 Hgb 10.7 L Hct 33.2 L MCV 94.1 MCH 30.3 MCHC 32.2 RDW 14.3 Plt Count 270 MPV 10.7 Sodium 144 Potassium 4.3 Chloride 112 H Carbon Dioxide 25 Anion Gap 12 BUN 46 H Creatinine 1.5 Est GFR ( Amer) 54 Est GFR (Non-Af Amer) 45 POC Glucose (mg/dL) 203 H Random Glucose 237 H Calcium 9.8 Prostate Specific Ag 11/06/18 06:48 WBC RBC Hgb Hct MCV MCH MCHC RDW Plt Count MPV Sodium Potassium Chloride Carbon Dioxide Anion Gap BUN Creatinine Est GFR ( Amer) Est GFR (Non-Af Amer) POC Glucose (mg/dL) 245 H Random Glucose Calcium Prostate Specific Ag Laboratory Results - last 72 hr 11/03/18 11/03/18 11/03/18 13:10 13:10 13:10 WBC RBC Hgb Hct MCV MCH MCHC RDW Plt Count MPV Neut % (Auto) Lymph % (Auto) Winn % (Auto) Eos % (Auto) Baso % (Auto) Lymph # (Auto) Winn # (Auto) Eos # (Auto) Baso # (Auto) Absolute Neuts (auto) Sodium Potassium Chloride Carbon Dioxide Anion Gap BUN Creatinine Est GFR ( Amer) Est GFR (Non-Af Amer) POC Glucose (mg/dL) Random Glucose Hemoglobin A1c Calcium Phosphorus Magnesium Total Bilirubin AST ALT Alkaline Phosphatase Lactate Dehydrogenase Total Creatine Kinase Troponin I 0.36 H* NT-Pro-B Natriuret Pep 9880 H Total Protein Albumin Globulin Albumin/Globulin Ratio Triglycerides Cholesterol LDL Cholesterol Direct HDL Cholesterol Prostate Specific Ag Procalcitonin TSH 3rd Generation 1.53 Digoxin Hepatitis A IgM Ab Hep Bs Antigen Hep B Core IgM Ab Hepatitis C Antibody 11/03/18 11/03/18 11/03/18 13:10 13:14 16:20 WBC RBC Hgb Hct MCV MCH MCHC RDW Plt Count MPV Neut % (Auto) Lymph % (Auto) Winn % (Auto) Eos % (Auto) Baso % (Auto) Lymph # (Auto) Winn # (Auto) Eos # (Auto) Baso # (Auto) Absolute Neuts (auto) Sodium Potassium Chloride Carbon Dioxide Anion Gap BUN Creatinine Est GFR ( Amer) Est GFR (Non-Af Amer) POC Glucose (mg/dL) 212 H 261 H Random Glucose Hemoglobin A1c Calcium Phosphorus Magnesium Total Bilirubin AST ALT Alkaline Phosphatase Lactate Dehydrogenase Total Creatine Kinase Troponin I NT-Pro-B Natriuret Pep Total Protein Albumin Globulin Albumin/Globulin Ratio Triglycerides Cholesterol LDL Cholesterol Direct HDL Cholesterol Prostate Specific Ag Procalcitonin TSH 3rd Generation Digoxin < 0.4 L Hepatitis A IgM Ab Hep Bs Antigen Hep B Core IgM Ab Hepatitis C Antibody 11/03/18 11/03/18 11/04/18 20:40 21:01 02:15 WBC RBC Hgb Hct MCV MCH MCHC RDW Plt Count MPV Neut % (Auto) Lymph % (Auto) Winn % (Auto) Eos % (Auto) Baso % (Auto) Lymph # (Auto) Winn # (Auto) Eos # (Auto) Baso # (Auto) Absolute Neuts (auto) Sodium Potassium Chloride Carbon Dioxide Anion Gap BUN Creatinine Est GFR ( Amer) Est GFR (Non-Af Amer) POC Glucose (mg/dL) 241 H Random Glucose Hemoglobin A1c Calcium Phosphorus Magnesium Total Bilirubin AST ALT Alkaline Phosphatase Lactate Dehydrogenase Total Creatine Kinase Troponin I 0.32 H* 0.26 H* NT-Pro-B Natriuret Pep Total Protein Albumin Globulin Albumin/Globulin Ratio Triglycerides Cholesterol LDL Cholesterol Direct HDL Cholesterol Prostate Specific Ag Procalcitonin TSH 3rd Generation Digoxin Hepatitis A IgM Ab Hep Bs Antigen Hep B Core IgM Ab Hepatitis C Antibody 11/04/18 11/04/18 11/04/18 06:25 06:25 06:25 WBC RBC Hgb Hct MCV MCH MCHC RDW Plt Count MPV Neut % (Auto) Lymph % (Auto) Winn % (Auto) Eos % (Auto) Baso % (Auto) Lymph # (Auto) Winn # (Auto) Eos # (Auto) Baso # (Auto) Absolute Neuts (auto) Sodium 139 Potassium 4.0 Chloride 106 Carbon Dioxide 26 Anion Gap 12 BUN 57 H Creatinine 2.1 H Est GFR ( Amer) 37 Est GFR (Non-Af Amer) 30 POC Glucose (mg/dL) Random Glucose 217 H Hemoglobin A1c Calcium 9.3 Phosphorus 3.6 Magnesium 1.9 Total Bilirubin 0.6 AST 34 ALT 20 Alkaline Phosphatase 61 Lactate Dehydrogenase 455 Total Creatine Kinase 55 Troponin I 0.26 H* NT-Pro-B Natriuret Pep Total Protein 6.4 Albumin 3.2 Globulin 3.2 Albumin/Globulin Ratio 1.0 L Triglycerides 152 Cholesterol 87 L LDL Cholesterol Direct 37 HDL Cholesterol 16 L Prostate Specific Ag Procalcitonin 0.47 TSH 3rd Generation Digoxin Hepatitis A IgM Ab Negative Hep Bs Antigen Negative Hep B Core IgM Ab Negative Hepatitis C Antibody Negative 11/04/18 11/04/18 11/04/18 06:25 06:25 06:25 WBC 12.0 H RBC 3.50 Hgb 10.5 L Hct 32.8 L MCV 93.7 MCH 30.0 MCHC 32.0 RDW 14.3 Plt Count 241 MPV 10.7 Neut % (Auto) 81.6 H Lymph % (Auto) 6.0 L Winn % (Auto) 12.0 H Eos % (Auto) 0.4 L Baso % (Auto) 0.0 Lymph # (Auto) 0.7 L Winn # (Auto) 1.4 H Eos # (Auto) 0.1 Baso # (Auto) 0.00 Absolute Neuts (auto) 9.79 H Sodium Potassium Chloride Carbon Dioxide Anion Gap BUN Creatinine Est GFR ( Amer) Est GFR (Non-Af Amer) POC Glucose (mg/dL) Random Glucose Hemoglobin A1c 7.1 H Calcium Phosphorus Magnesium Total Bilirubin AST ALT Alkaline Phosphatase Lactate Dehydrogenase Total Creatine Kinase Troponin I NT-Pro-B Natriuret Pep Total Protein Albumin Globulin Albumin/Globulin Ratio Triglycerides Cholesterol LDL Cholesterol Direct HDL Cholesterol Prostate Specific Ag Procalcitonin TSH 3rd Generation 1.42 Digoxin Hepatitis A IgM Ab Hep Bs Antigen Hep B Core IgM Ab Hepatitis C Antibody 11/04/18 11/04/18 11/04/18 07:20 11:39 16:22 WBC RBC Hgb Hct MCV MCH MCHC RDW Plt Count MPV Neut % (Auto) Lymph % (Auto) Winn % (Auto) Eos % (Auto) Baso % (Auto) Lymph # (Auto) Winn # (Auto) Eos # (Auto) Baso # (Auto) Absolute Neuts (auto) Sodium Potassium Chloride Carbon Dioxide Anion Gap BUN Creatinine Est GFR ( Amer) Est GFR (Non-Af Amer) POC Glucose (mg/dL) 217 H 245 H 233 H Random Glucose Hemoglobin A1c Calcium Phosphorus Magnesium Total Bilirubin AST ALT Alkaline Phosphatase Lactate Dehydrogenase Total Creatine Kinase Troponin I NT-Pro-B Natriuret Pep Total Protein Albumin Globulin Albumin/Globulin Ratio Triglycerides Cholesterol LDL Cholesterol Direct HDL Cholesterol Prostate Specific Ag Procalcitonin TSH 3rd Generation Digoxin Hepatitis A IgM Ab Hep Bs Antigen Hep B Core IgM Ab Hepatitis C Antibody 11/04/18 11/05/18 11/05/18 21:10 06:00 06:00 WBC 13.6 H RBC 3.44 L Hgb 10.2 L Hct 32.5 L MCV 94.5 MCH 29.7 MCHC 31.4 RDW 14.0 Plt Count 285 MPV 10.8 Neut % (Auto) Lymph % (Auto) Winn % (Auto) Eos % (Auto) Baso % (Auto) Lymph # (Auto) Winn # (Auto) Eos # (Auto) Baso # (Auto) Absolute Neuts (auto) Sodium 140 Potassium 4.3 Chloride 108 H Carbon Dioxide 26 Anion Gap 11 BUN 53 H Creatinine 1.7 H Est GFR ( Amer) 47 Est GFR (Non-Af Amer) 39 POC Glucose (mg/dL) 204 H Random Glucose 237 H Hemoglobin A1c Calcium 9.4 Phosphorus Magnesium Total Bilirubin AST ALT Alkaline Phosphatase Lactate Dehydrogenase 459 Total Creatine Kinase 38 Troponin I 0.34 H* D NT-Pro-B Natriuret Pep Total Protein Albumin Globulin Albumin/Globulin Ratio Triglycerides Cholesterol LDL Cholesterol Direct HDL Cholesterol Prostate Specific Ag Procalcitonin TSH 3rd Generation Digoxin Hepatitis A IgM Ab Hep Bs Antigen Hep B Core IgM Ab Hepatitis C Antibody 11/05/18 11/05/18 11/05/18 07:33 11:17 11:49 WBC RBC Hgb Hct MCV MCH MCHC RDW Plt Count MPV Neut % (Auto) Lymph % (Auto) Winn % (Auto) Eos % (Auto) Baso % (Auto) Lymph # (Auto) Winn # (Auto) Eos # (Auto) Baso # (Auto) Absolute Neuts (auto) Sodium Potassium Chloride Carbon Dioxide Anion Gap BUN Creatinine Est GFR ( Amer) Est GFR (Non-Af Amer) POC Glucose (mg/dL) 245 H 242 H Random Glucose Hemoglobin A1c Calcium Phosphorus Magnesium Total Bilirubin AST ALT Alkaline Phosphatase Lactate Dehydrogenase Total Creatine Kinase Troponin I NT-Pro-B Natriuret Pep Total Protein Albumin Globulin Albumin/Globulin Ratio Triglycerides Cholesterol LDL Cholesterol Direct HDL Cholesterol Prostate Specific Ag 110.0 H Procalcitonin TSH 3rd Generation Digoxin Hepatitis A IgM Ab Hep Bs Antigen Hep B Core IgM Ab Hepatitis C Antibody 11/05/18 11/05/18 11/06/18 16:24 21:17 06:20 WBC 12.4 H RBC 3.53 Hgb 10.7 L Hct 33.2 L MCV 94.1 MCH 30.3 MCHC 32.2 RDW 14.3 Plt Count 270 MPV 10.7 Neut % (Auto) Lymph % (Auto) Winn % (Auto) Eos % (Auto) Baso % (Auto) Lymph # (Auto) Winn # (Auto) Eos # (Auto) Baso # (Auto) Absolute Neuts (auto) Sodium Potassium Chloride Carbon Dioxide Anion Gap BUN Creatinine Est GFR ( Amer) Est GFR (Non-Af Amer) POC Glucose (mg/dL) 206 H 203 H Random Glucose Hemoglobin A1c Calcium Phosphorus Magnesium Total Bilirubin AST ALT Alkaline Phosphatase Lactate Dehydrogenase Total Creatine Kinase Troponin I NT-Pro-B Natriuret Pep Total Protein Albumin Globulin Albumin/Globulin Ratio Triglycerides Cholesterol LDL Cholesterol Direct HDL Cholesterol Prostate Specific Ag Procalcitonin TSH 3rd Generation Digoxin Hepatitis A IgM Ab Hep Bs Antigen Hep B Core IgM Ab Hepatitis C Antibody 11/06/18 11/06/18 06:20 06:48 WBC RBC Hgb Hct MCV MCH MCHC RDW Plt Count MPV Neut % (Auto) Lymph % (Auto) Winn % (Auto) Eos % (Auto) Baso % (Auto) Lymph # (Auto) Winn # (Auto) Eos # (Auto) Baso # (Auto) Absolute Neuts (auto) Sodium 144 Potassium 4.3 Chloride 112 H Carbon Dioxide 25 Anion Gap 12 BUN 46 H Creatinine 1.5 Est GFR ( Amer) 54 Est GFR (Non-Af Amer) 45 POC Glucose (mg/dL) 245 H Random Glucose 237 H Hemoglobin A1c Calcium 9.8 Phosphorus Magnesium Total Bilirubin AST ALT Alkaline Phosphatase Lactate Dehydrogenase Total Creatine Kinase Troponin I NT-Pro-B Natriuret Pep Total Protein Albumin Globulin Albumin/Globulin Ratio Triglycerides Cholesterol LDL Cholesterol Direct HDL Cholesterol Prostate Specific Ag Procalcitonin TSH 3rd Generation Digoxin Hepatitis A IgM Ab Hep Bs Antigen Hep B Core IgM Ab Hepatitis C Antibody - Constitutional Appears: Well, Non-toxic - Head Exam Head Exam: NORMOCEPHALIC - Eye Exam Eye Exam: Normal appearance - ENT Exam ENT Exam: absent: Mucous Membranes Dry, Mucous Membranes Moist, Normal Exam, Normal External Ear Exam, Normal Oropharynx, TM's Normal Bilaterally - Neck Exam Neck Exam: absent: Full ROM, Lymphadenopathy, Meningismus, Normal Inspection, Tenderness, Thyromegaly - Cardiovascular Exam Cardiovascular Exam: Irregular Rhythm, +S1, +S2 - GI/Abdominal Exam GI & Abdominal Exam: Soft - Rectal Exam Rectal Exam: Deferred - Exam Exam: absent: Circumcision, NORMAL INSPECTION, Scrotal Swelling, Testicular T enderness, Uretheral Discharge, Testicular Vertical Lie, Bladder Distension External exam: absent: Ecchymosis, Erythema, Lacerations, Lesions, NORMAL EXTERNAL EXAM, Swelling Speculum exam: absent: Cervical Discharge, Erythema, Foreign Body, Laceration, NORMAL SPECULUM EXAM, Tissue, Vaginal Bleeding, Vaginal Discharge Bimanual exam: absent: Adenexal Mass, Adnexal, Cervical Motion Tendernes, NORMAL BIMANUAL EXAM, Uterine Enlargement, Uterine Tenderness - Extremities Exam Additional comments: limited ROM due to significant lower back pain - Neurological Exam Neurological Exam: Abnormal Gait - Psychiatric Exam Psychiatric exam: Depressed - Skin Skin Exam: Dry, Intact, Normal Color, Warm Assessment and Plan - Assessment and Plan (Free Text) Assessment: ITS Impressions Lumbar Spine CT 10/30/18 00:44 IMPRESSION: Markedly severe erosive changes at L1-2. No acute fracture. Spinal stenosis at L1-2 with soft tissue swelling possibly representing underlying inflammatory component. Otherwise multilevel degenerative disc disease, spondylosis and osteopenia. Lumbar Spine MRI 10/30/18 06:25 IMPRESSION: Severe degenerative changes are seen in the L1 L2 disc space. The disc space is filled with fluid. Severe degenerative changes of been seen at this level since the CT of 2011. Therefore this most likely represents progression of degeneration rather than discitis. There is no evidence of marrow edema to suggest acute infection. The disc bulge and facet arthropathy produces a severe degree of spinal stenosis at this level. Chest X-Ray 11/03/18 10:10 IMPRESSION: Possible left basilar pneumonia. Follow-up advised. Abdomen Ultrasound 11/03/18 22:54 IMPRESSION: Unremarkable abdominal sonogram. Limitations of the current examination: Nonvisualization of pancreas, aorta and IVC Assessment: 83yo male with pmhx of hypertension, Diabetes, chronic back pain, OA of the left knee who presented for complaint of severe lower back pain x2days. Per patient's family always had lower back pain and refused to take any medication or see a specialist but the pain became worse 2days ago, admitted for further eval and treatment. Plan: 1. Lower back pain most likely r/t Lumbarsacral radiculopathy, spinal stenosis, degenerative disc disease. cont. pain meds as ordered. 2. Htn cont current meds 3. RAYRAY Improved with IVF maybe r/t dehydration, cont IVF bladder scan showed no retention, trend bun/creatinine 4. UTI UA positive, cx resulted Enterococcus Faecium, Antibiotics ordered per I.D. 5. Left basilar pneumonia/ Antibiotics per I.D.,Day 4/7 IV Antibiotics. 6. Atrial Fibrillation Cardiology consulted, IV Digoxin 1 x dose, given, daily ordered. Lovenox, Beta Bailey as per card. 7. Positive Troponin, downtrending, maybe r/t to acute kidney injury, will monitor on remote telem etry lexiscan stress test cancelled due to inability to lay flat, without pain, period of confusion. 8. Elevated PSA in setting of severe lower back pain Bone scan pending to r/o bone mets Will continue to monitor clinical status and follow closely. PT rec acute rehab, SW/CM planning for dc to [facility] . Pt. cleared by cardiology, DC telemetry,pt now DNR/DNI, SW/CM notes reviewed, will continue to discuss with consultants , PMD.
--- NOTE | 2018-11-06 13:52 | NM ---
Date of service: 11/06/2018 PROCEDURE: Whole Body Bone Scan HISTORY: r/o lytic lesion to spine, PSA > 100 COMPARISON: 10/30/2018 MRI lumbar spine. 10/30/2018 CT lumbar spine. TECHNIQUE: Following administration of 28.8 miCu of Tc MDP multiplanar whole body images were obtained. FINDINGS: Evidence for bony metastatic disease: None. Degenerative uptake: Thoracolumbar spine, pelvis particularly left iliac bone and to lesser extent right iliac bone. Physiologic uptake: Normal physiologic activity in the kidneys. Other findings: None. IMPRESSION: Multiple foci of increased uptake involving lower thoracic vertebral bodies, L1 and L3. However the MRI of the lumbar spine which includes visible lower thoracic spine failed to identify osseous abnormalities to suggest that these represent metastatic lesions.
[2018-11-06] MEDS ORDERED: Digoxin 125 mcg (0.125 mg) Tab PO SCH (14:00)
--- NOTE | 2018-11-06 14:12 | PN ---
DATE: 11/06/2018 SUBJECTIVE: The patient is an 83-year-old white male in room 361 bed one. Other than the back pain, he has no new complaints. There have been no acute events overnight. PHYSICAL EXAMINATION: VITAL SIGNS: Temperature of 98.6, pulse rate of 84, blood pressure 160/78 with a respiratory rate of 18. HEENT: PERRLA, EOMI. NECK: Supple with full range of motion. LUNGS: Clear bilaterally. HEART: Beats irregular. ABDOMEN: Benign. NEUROLOGIC: There are no focal motor deficits. LABORATORY DATA: His WBCs are 12.4 which are fairly steady at that range, hemoglobin/hematocrit 10.7 and 33.2. Chemistry, chloride of 112, BUN of 46, creatinine of 46, and a sugar of 237. ASSESSMENT AND PLAN: The patient will undergo a bone scan. Based on that, further recommendations will be made. Currently, the patient has lumbar disc disease, diabetes, intractable low back pain, and elevated PSA. Brigido Marinelli MD
--- NOTE | 2018-11-06 16:07 | CT ---
Date of service: 11/06/2018 PROCEDURE: CT HEAD WITHOUT CONTRAST. HISTORY: assess for ams COMPARISON: None available. TECHNIQUE: Axial computed tomography images were obtained through the head/brain without intravenous contrast. Radiation dose: Total exam DLP = 1108.65 mGy-cm. This CT exam was performed using one or more of the following dose reduction techniques: Automated exposure control, adjustment of the mA and/or kV according to patient size, and/or use of iterative reconstruction technique. FINDINGS: HEMORRHAGE: No intracranial hemorrhage. BRAIN: No mass effect or edema. There is moderate atrophy. Mild microvascular changes. No acute intracranial findings VENTRICLES: Unremarkable. No hydrocephalus. CALVARIUM: Unremarkable. PARANASAL SINUSES: Unremarkable as visualized. No significant inflammatory changes. MASTOID AIR CELLS: Unremarkable as visualized. No inflammatory changes. OTHER FINDINGS: There is motion artifact IMPRESSION: There is moderate atrophy. Mild microvascular changes. No acute intracranial findings
[2018-11-06] MEDS: Enoxaparin 100 mg Syringe SC SCH (17:03)
--- NOTE | 2018-11-06 20:38 | PN ---
DATE: 11/06/2018 SUBJECTIVE: The patient is in bed, in no acute distress, nontoxic. No fevers. PHYSICAL EXAMINATION: VITAL SIGNS: Temperature is 98, blood pressure is 160/70, and respiratory rate is 18. HEENT: Unremarkable. NECK: Supple. LUNGS: Have decreased breath sounds. HEART: Normal S1 and S2. ABDOMEN: Soft. LABORATORY DATA: Reveals a white count of 12,400 and hemoglobin of 10. BUN of 46, creatinine 1.5 and procalcitonin is 0.47. PSA is 110. Urinalysis is noted, significant wbc's and bacteria. Toxicology is noted. Serology is reviewed. Microbiology reveals Enterococcus faecalis that is sensitive to ampicillin. Blood cultures are negative. The patient had a CT scan of the head, moderate bacteria, no acute changes. The patient had a bone scan, multifocal increased involving the lower thoracic vertebrae L1 and L3, metastatic lesion is a possibility. Nurse, Lisa Cordova, plant care worker is noted. Nurse practitioner's note is reviewed. Lumbar spine CT is noted. Dr. Brigido Marinelli's note is reviewed. MEDICATIONS: The patient is on p.o. doxycycline, cefepime, and intermittent vancomycin. ASSESSMENT AND PLAN: This is an 83-year-old male who was admitted with chronic back pain with severe sepsis, left-sided healthcare-associated pneumonia with acute kidney injury and Enterococcus urinary tract infection with an elevated PSA with prostatitis, and now with a positive bone scan with possible metastatic lesions. The patient initially had opacity of left lung base on the chest x-ray. Urology evaluation. We will discontinue the doxycycline and the cefepime. With a negative procalcitonin, we will switch to p.o. ampicillin to cover the Enterococcus faecalis urinary tract infection and with elevated PSA, should have Urology evaluation. Prostatitis and underlying prostate disease. We will treat with ampicillin 500 mg q.i.d. for 21 days pending Urology evaluation. Peewee Middleton MD
[2018-11-07] MEDS: Albuterol-Ipratrop 3 mg / 0.5 (3 ml) UD IH SCH ×7 (00:55→23:32)
[2018-11-07] MEDS: HYDROmorphone 0.5 mg/0.5 ml ISec IVP PRN ×3 (03:23→12:46)
[2018-11-07 07:03] LABS: MEAN CELL VOLUME 93.8 fl (80.0-105.0); MEAN CORPUSCULAR HEMOGLOBIN 29.4 pg (25.0-35.0); MEAN CORPUSCULAR HGB CONC 31.3 g/dl (31.0-37.0); MEAN PLATELET VOLUME 10.7 fl (7.0-11.0); RBC 3.4 10^6/uL (3.5-6.1); RED CELL DISTRIBUTION WIDTH 14.4 % (11.5-14.5); WHITE BLOOD COUNT 11.5 10^3/uL (4.5-11.0)
[2018-11-07 07:13] LABS: CALCIUM 10.2 mg/dL (8.4-10.5)
--- NOTE | 2018-11-07 07:44 | CP.PCM.PN ---
Subjective - Date & Time of Evaluation Date of Evaluation: 11/07/18 Time of Evaluation: 07:00 - Subjective Subjective: Lying in bed, awake, no distress, off and on confusion,complaining of back pain Reason for consultation and follow up: Cardiac evaluation of new onset atrial fibrillation Seen and examined by me and Dr. Ferguson Objective - Vital Signs/Intake and Output Vital Signs (last 24 hours): Temp Pulse Resp BP Pulse Ox 98.6 F 72 18 141/75 94 L 11/06/18 06:00 11/06/18 17:03 11/06/18 06:00 11/06/18 17:03 11/05/18 23:40 Intake and Output: 11/07/18 11/07/18 06:59 18:59 Intake Total 1700 Output Total 1800 Balance -100 - Medications Medications: Current Medications Albuterol/Ipratropium (Duoneb 3 Mg/0.5 Mg (3 Ml) Ud) 3 ml IH [id number] [facility] Last Admin: 11/07/18 03:57 Dose: 3 ml Alprazolam (Xanax) 0.5 mg PO BID PRN; Protocol PRN Reason: Anxiety Last Admin: 11/06/18 21:30 Dose: 0.5 mg Amlodipine Besylate (Norvasc) 10 mg PO DAILY [facility] Last Admin: 11/06/18 09:15 Dose: 10 mg Ampicillin (Ampicillin) 500 mg PO QID [facility]; Protocol Stop: 11/27/18 22:01 Last Admin: 11/06/18 21:30 Dose: 500 mg Aspirin (Ecotrin) 81 mg PO DAILY [facility] Last Admin: 11/06/18 09:15 Dose: 81 mg Atenolol (Tenormin) 25 mg PO BID [facility] Last Admin: 11/06/18 17:03 Dose: 25 mg Atorvastatin Calcium (Lipitor) 80 mg PO DIN [facility] Last Admin: 11/06/18 17:02 Dose: 80 mg Digoxin (Digoxin) 0.125 mg PO MWF@1400 [facility] Last Admin: 11/06/18 13:24 Dose: Not Given Docusate Sodium (Colace) 100 mg PO BID [facility] Last Admin: 11/06/18 17:02 Dose: 100 mg Emollient Ointment (Vaseline Oint) 5 gm TOP TID PRN PRN Reason: DRY SKIN Enoxaparin Sodium (Lovenox) 90 mg SC Q24H [facility]; Protocol Last Admin: 11/06/18 17:03 Dose: 90 mg Fentanyl (Duragesic) 1 patch TD Q72H [facility] Last Admin: 11/05/18 18:19 Dose: 1 patch Glimepiride (Amaryl) 4 mg PO BID [facility] Last Admin: 11/06/18 17:02 Dose: 4 mg Hydromorphone HCl (Dilaudid) 0.5 mg IVP Q4H PRN PRN Reason: Pain, severe (8-10) Last Admin: 11/07/18 03:23 Dose: 0.5 mg Sodium Chloride (Sodium Chloride 0.9%) 1,000 mls @ 100 mls/hr IV .Q10H [facility] Last Admin: 11/06/18 17:01 Dose: 100 mls/hr Insulin Human Regular (Humulin R Med) 0 units SC ACHS [facility]; Protocol Last Admin: 11/06/18 21:27 Dose: Not Given Ondansetron HCl (Zofran Inj) 4 mg IVP Q6H PRN PRN Reason: Nausea/Vomiting Last Admin: 11/02/18 11:20 Dose: 4 mg Sennosides (Senokot Tab) 17.2 mg PO HS [facility] Last Admin: 11/06/18 21:32 Dose: 17.2 mg Sitagliptin Phosphate (Januvia) 25 mg PO DAILY [facility] Last Admin: 11/06/18 09:15 Dose: 25 mg Tamsulosin HCl (Flomax) 0.4 mg PO DAILY [facility] Last Admin: 11/06/18 09:15 Dose: 0.4 mg - Labs Labs: 11/07/18 06:00 11/07/18 06:00 PT 14.9 SECONDS (9.4-12.5) H 10/30/18 00:55 INR 1.34 10/30/18 00:55 APTT 30.8 Seconds (26.9-38.3) 10/30/18 00:55 - Constitutional Appears: Non-toxic, No Acute Distress - Head Exam Head Exam: NORMAL INSPECTION, NORMOCEPHALIC - Eye Exam Eye Exam: Normal appearance Pupil Exam: NORMAL ACCOMODATION - ENT Exam ENT Exam: Mucous Membranes Moist - Respiratory Exam Respiratory Exam: Decreased Breath Sounds, NORMAL BREATHING PATTERN - Cardiovascular Exam Cardiovascular Exam: +S1, +S2 - GI/Abdominal Exam GI & Abdominal Exam: Soft, Normal Bowel Sounds - Back Exam Additional comments: chronic back pain - Neurological Exam Neurological Exam: Alert, Awake - Psychiatric Exam Psychiatric exam: Normal Affect, Normal Mood - Skin Skin Exam: Dry, Normal Color, Warm Assessment and Plan - Assessment and Plan (Free Text) Assessment: An 83 year old male who came in to [facility] Same day procedure for epidural injection for severe back pain. In SDS , he was found to be in atrial fibrillation thus was sent to the ER. History of chronic back pain due to lumbosacral deg enerative joint disease,hypertension, diabetes, osteoarthritis, walks with cane. Patient has renal insufficiency with creatinine of 1.7/2.3. Creatinine clearance of 36. Uncontrolled diabetes, new onset atrial fibrillation. Denies chest pain. Troponin elevated 0.36/0.32/0.26/0.26. probably secondary to renal insufficiency but cannot rule out coronary artery disease. He is not a candidate for cardiac catheterization now due to renal insufficency. Patient denies chest pain or shortness of breath. Digoxin IV given for atrial fibrillation. Started on Atenolol low dose due to low systolic blood pressure.chest X ray showed left basilar pneumonia. ID on consult. IV antibiotics. Echo done and sh owed LVEF 55%,diastolic function cannot assess due to atrial fibrillation, non coronary cusp heavily calcified and immobile, trace AR, trace to mild MR, mild TR RVSP 31 mmHg, no pericardial effusion or thrombus. Stress test cancelled,patient will not keep still for the procedure, patient is off and on confuse. Urine culture positive for Enterococcus faecalis. Seen by Palliative care, patient DNR/DNI. Atrial fibrillation controlled, off telemetry. Elevated PSA, Urology consult. Bone scan done yesterday- multiple foci of increased uptake involving lower thoracic vertebral bodies L1 and L3. Head CT done and showed moderate atrophy, mild microvascular changes. No bleeding. Cardiac status stable. Plan: No distress, repositioned in bed DNR/DNI Controlled heart rate Blood pressure controlled Cardiac status stable On ASA 81 mg daily, Norvasc 10 mg daily, Tenormin 12.5 mg BID, Lipitor 80 mg daily,Flomax 0.4 mg daily,Digoxin 0.125 mg po every MWF Continue current medications Continue current treatment Continue IV antibiotics per ID No further cardiac work up at this point Urology consult for elevated PSA Pain management Discharge planning Will follow up Plan and treatment discussed with Dr. Ferguson
[2018-11-07] MEDS: Insulin Reg-MEDIUM-Coverage SC SCH ×4 (08:18→22:21)
--- NOTE | 2018-11-07 11:39 | PN ---
DATE: 11/07/2018 SUBJECTIVE: The patient is seen earlier this morning, no acute distress, in room 361. The patient continues to have back pain. There has been no fevers. PHYSICAL EXAMINATION: VITAL SIGNS: Temperature is 98, blood pressure is 140/70, respiratory rate of 18. HEENT: Unremarkable. NECK: Supple. LUNGS: Have decreased breath sounds. HEART: Normal S1, S2. ABDOMEN: Soft. LABORATORY DATA: White count of 11,500, hemoglobin of 10, BUN of 45, creatinine of 1.5. Urinalysis is noted. Microbiology reveals Enterococcus faecalis in the urine, sensitive to ampicillin. Review of orders reveals the patient to be on ampicillin. ASSESSMENT AND PLAN: This is an 83-year-old male, admitted with chronic back pain and severe sepsis, left-sided healthcare-associated pneumonia, acute kidney injury and Enterococcus urinary tract infection, possible prostatitis with an elevated PSA, positive bone scan for metastatic disease. Should have Urology for prostate evaluation and the patient's PSA is 110. Peewee Middleton MD
[2018-11-07] MEDS: Sodium Chloride 0.9% 1,000 ML IV SCH ×2 (12:13→13:41)
--- NOTE | 2018-11-07 12:33 | PN ---
SUBJECTIVE: The patient was seen and examined at bedside on the remote telemetry willis. No acute events overnight. He remains afebrile and hemodynamically stable. He continues to have episodic delirium but is easily reoriented. OBJECTIVE: VITAL SIGNS: Temperature 98.2, pulse 74, blood pressure 143/81, respiratory rate 18, oxygen saturation 92% on room air. GENERAL: Elderly man appearing his stated age, lying in bed in no apparent distress. HEENT: PERRL, EOMI. No scleral icterus. No conjunctival pallor. NECK: No JVD. LUNGS: Decreased breath sounds at the bases. CARDIOVASCULAR: Irregularly irregular. Normal S1, S2. ABDOMEN: Normoactive bowel sounds, soft, nontender, nondistended. EXTREMITIES: No edema. NEUROLOGIC: Awake, alert and oriented x 3. No focal motor deficits. LABORATORY DATA: WBC 11.5, hemoglobin 10, hematocrit 32, platelets 303. Sodium 146, potassium 4.2, chloride 115, bicarb 24, BUN 45, creatinine 1.5, glucose 183. Blood cultures with no growth to date. Urine culture with Enterococcus faecalis and sensitivities noted. IMAGING STUDIES: 1. CT of the head without contrast demonstrated microvascular changes with age- related volume loss but otherwise no acute pathology. DIAGNOSTIC STUDIES: 1. Nuclear bone scan demonstrated multiple areas of increased uptake to the lower thoracic vertebral bodies. ASSESSMENT: The patient is an 83-year-old man with a past medical history of hypertension, non-insulin dependent diabetes mellitus and lumbosacral radiculopathy who presented with several day history of low back pain and was admitted for pain control and PT evaluation whose hospital course was complicated by development of new onset Afib and healthcare-associated pneumonia. PLAN: 1. AFib, new onset. Input from Dr. Gill noted. The patient remains rate controlled. Continue Atenolol 25 mg p.o. b.i.d, ASA 81 mg p.o. daily and Digoxin. 2. Elevated troponin, consider secondary to impaired renal clearance vs NSTEMI. Input from Dr. Gill noted. The patient remains chest pain free. Continue with care as per Dr. Gill. 3. Healthcare-associated pneumonia. Input from Dr. Middleton noted. The patient remains afebrile and with negative blood cultures. Continue with current antimicrobials. 4. Markedly elevated PSA. Bone scan reviewed. Evaluation with Dr. Avalos of Urology is pending. 5. 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 Continue with gentle IV fluid hydration, monitor strict I&O's, renally dose medications and avoid nephrotoxins. 6. Lumbosacral radiculopathy. Continue with current analgesic regimen and PT. As above, urologic evaluation is pending with Dr. Avalos to rule out metastatic illness as cause of the patient's severe low back pain. 7. Hypertension. Blood pressure controlled. Continue on Atenolol 25 mg p.o. b.i.d and Norvasc 10 mg p.o. daily. 8. NIDDM. Most recent A1c of 7.1. Continue insulin sliding scale for coverage, Glimepiride 4 mg p.o. b.i.d. and Januvia 25 mg p.o. daily. 9. Hyperlipidemia. Continue Lipitor 80 mg p.o. daily. 10. Anemia of chronic disease. Labs demonstrate Hb at baseline. Continue to monitor CBC daily. 11. Anxiety disorder. Continue Xanax 0.5 mg p.o. b.i.d. p.r.n. 12. BPH. Continue Flomax 0.4 mg p.o. daily. 13. Prophylaxis. GI prophylaxis not indicated as the patient is eating. DVT prophylaxis not indicated as the patient remains on Lovenox. CODE STATUS: DNR/DNI. Duncan Marinelli MD MTDJeanette
[2018-11-07] MEDS: Enoxaparin 100 mg Syringe SC SCH (17:38)
[2018-11-08] MEDS: Albuterol-Ipratrop 3 mg / 0.5 (3 ml) UD IH SCH ×5 (05:11→20:29)
[2018-11-08 06:59] LABS: HEMOGLOBIN 10.4 g/dL (14.0-18.0); MEAN CELL VOLUME 95.7 fl (80.0-105.0); MEAN CORPUSCULAR HEMOGLOBIN 29.6 pg (25.0-35.0); MEAN PLATELET VOLUME 10.7 fl (7.0-11.0); RBC 3.51 10^6/uL (3.5-6.1); RED CELL DISTRIBUTION WIDTH 14.7 % (11.5-14.5); WHITE BLOOD COUNT 13.5 10^3/uL (4.5-11.0)
[2018-11-08] MEDS: Insulin Reg-MEDIUM-Coverage SC SCH ×4 (07:38→21:29)
[2018-11-08] MEDS: Sodium Chloride 0.9% 1,000 ML IV SCH ×3 (08:49→18:08)
[2018-11-08] MEDS: HYDROmorphone 0.5 mg/0.5 ml ISec IVP PRN ×3 (08:53→19:56)
--- NOTE | 2018-11-08 10:21 | CP.PCM.PN ---
Subjective - Date & Time of Evaluation Date of Evaluation: 11/08/18 Time of Evaluation: 07:00 - Subjective Subjective: Lying in bed, sleeping, was given Ativan for agitation, no distress, Reason for consultation and follow up: Cardiac evaluation of new onset atrial fibrillation Seen and examined by me and Dr. Ferguson Objective - Vital Signs/Intake and Output Vital Signs (last 24 hours): Temp Pulse Resp BP Pulse Ox 98.1 F 77 20 153/72 H 94 L 11/08/18 08:35 11/08/18 08:35 11/08/18 08:35 11/08/18 08:35 11/08/18 08:35 Intake and Output: 11/08/18 11/08/18 06:59 18:59 Intake Total Output Total Balance - Medications Medications: Current Medications Albuterol/Ipratropium (Duoneb 3 Mg/0.5 Mg (3 Ml) Ud) 3 ml IH [id number] [facility] Last Admin: 11/08/18 08:20 Dose: 3 ml Amlodipine Besylate (Norvasc) 10 mg PO DAILY [facility] Last Admin: 11/08/18 09:01 Dose: Not Given Ampicillin (Ampicillin) 500 mg PO QID [facility]; Protocol Stop: 11/27/18 22:01 Last Admin: 11/08/18 09:00 Dose: Not Given Aspirin (Ecotrin) 81 mg PO DAILY [facility] Last Admin: 11/08/18 09:00 Dose: Not Given Atenolol (Tenormin) 25 mg PO BID [facility] Last Admin: 11/08/18 09:01 Dose: Not Given Atorvastatin Calcium (Lipitor) 80 mg PO DIN [facility] Last Admin: 11/07/18 17:36 Dose: Not Given Digoxin (Digoxin) 0.125 mg PO MWF@1400 [facility] Last Admin: 11/06/18 13:24 Dose: Not Given Docusate Sodium (Colace) 100 mg PO BID [facility] Last Admin: 11/08/18 09:00 Dose: Not Given Emollient Ointment (Vaseline Oint) 5 gm TOP TID PRN PRN Reason: DRY SKIN Enoxaparin Sodium (Lovenox) 90 mg SC Q24H [facility]; Protocol Last Admin: 11/07/18 17:38 Dose: 90 mg Fentanyl (Duragesic) 1 patch TD Q72H [facility] Last Admin: 11/08/18 09:57 Dose: 1 patch Glimepiride (Amaryl) 4 mg PO BID [facility] Last Admin: 11/08/18 09:00 Dose: Not Given Sodium Chloride (Sodium Chloride 0.9%) 1,000 mls @ 100 mls/hr IV .Q10H [facility] Last Admin: 11/08/18 09:01 Dose: Not Given Insulin Human Regular (Humulin R Med) 0 units SC ACHS [facility]; Protocol Last Admin: 11/08/18 07:38 Dose: Not Given Lorazepam (Ativan) 1 mg IVP Q6H PRN; Protocol PRN Reason: Anxiety Last Admin: 11/07/18 19:08 Dose: 1 mg Ondansetron HCl (Zofran Inj) 4 mg IVP Q6H PRN PRN Reason: Nausea/Vomiting Last Admin: 11/02/18 11:20 Dose: 4 mg Sennosides (Senokot Tab) 17.2 mg PO HS [facility] Last Admin: 11/07/18 23:21 Dose: Not Given Sitagliptin Phosphate (Januvia) 25 mg PO DAILY [facility] Last Admin: 11/08/18 09:00 Dose: Not Given Tamsulosin HCl (Flomax) 0.4 mg PO DAILY [facility] Last Admin: 11/08/18 09:00 Dose: Not Given - Labs Labs: 11/08/18 06:50 11/08/18 06:50 PT 14.9 SECONDS (9.4-12.5) H 10/30/18 00:55 INR 1.34 10/30/18 00:55 APTT 30.8 Seconds (26.9-38.3) 10/30/18 00:55 - Constitutional Appears: Non-toxic, No Acute Distress - Head Exam Head Exam: NORMAL INSPECTION, NORMOCEPHALIC - Eye Exam Eye Exam: Normal appearance Pupil Exam: NORMAL ACCOMODATION - ENT Exam ENT Exam: Mucous Membranes Dry - Respiratory Exam Respiratory Exam: Decreased Breath Sounds, NORMAL BREATHING PATTERN - Cardiovascular Exam Cardiovascular Exam: +S1, +S2 - GI/Abdominal Exam GI & Abdominal Exam: Soft, Normal Bowel Sounds - Exam Additional comments: pinto catheter - Extremities Exam Extremities Exam: Full ROM - Neurological Exam Additional comments: lethargic, agitation - Skin Skin Exam: Dry, Normal Color, Warm Assessment and Plan - Assessment and Plan (Free Text) Assessment: An 83 year old male who came in to [facility] [place] Same day procedure for epidural injection for severe back pain. In SDS , he was found to be in atrial fibrillation thus was sent to the ER. 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 Patient has renal insufficiency with creatinine of 1.7/2.3. Creatinine clearance of 36. Uncontrolled diabetes, new onset atrial fibrillation. Denies chest pain. Troponin elevated 0.36/0.32/0.26/0.26. probably secondary to renal insufficiency but cannot rule out coronary artery disease. He is not a candidate for cardiac catheterization now due to renal insufficency. Patient denies chest pain or shortness of breath. Digoxin IV given for atrial fibrillation. Started on Atenolol low dose due to low systolic blood pressure.chest X ray showed left basilar pneumonia. ID on consult. IV antibiotics. Echo done and showed LVEF 55%,diastolic function cannot assess due to atrial fibrillation, non coronary cusp heavily calcified and immobile, trace AR, trace to mild MR, mild TR RVSP 31 mmHg, no pericardial effusion or thrombus. Stress test can celled,patient will not keep still for the procedure, patient is off and on confuse. Urine culture positive for Enterococcus faecalis. Seen by Palliative care, patient DNR/DNI. Atrial fibrillation controlled, off telemetry. Elevated PSA, Urology consult. Bone scan done showed- multiple foci of increased uptake involving lower thoracic vertebral bodies L1 and L3. Head CT done and showed moderate atrophy, mild microvascular changes. No bleeding. Cardiac status stable. Unable to take oral medications due to lethargy from Ativan. Will switch some of his medications to IV. Plan: Agitated, PRN Ativan given No distress, DNR/DNI Controlled heart rate Blood pressure controlled Cardiac status stable On ASA 81 mg daily, Norvasc 10 mg daily, Tenormin 12.5 mg BID, Lipitor 80 mg daily,Flomax 0.4 mg daily,Digoxin 0.125 mg po every MWF Unable to take oral medications, will switch to IV some of medications Continue current medications Continue current treatment Continue IV antibiotics per ID No further cardiac work up at this point Urology consult for elevated PSA Pain management Discharge planning Will follow up Plan and treatment discussed with Dr. Ferguson
--- NOTE | 2018-11-08 13:03 | PN ---
DATE: 11/08/2018 SUBJECTIVE: The patient is in bed, in no acute distress, nontoxic. No fevers. No chills. Continues to have back pain. PHYSICAL EXAMINATION: VITAL SIGNS: Temperature is 98, blood pressure is 120/70, respiratory rate 16. HEENT: Unremarkable. NECK: Supple. LUNGS: Have decreased breath sounds. HEART: Normal S1, S2. ABDOMEN: Soft, nontender. LABORATORY DATA: White count of 13,500, hemoglobin of 10. BUN of 42, creatinine of 1.4. Urinalysis is noted and serology is negative and urine culture is Enterococcus faecalis, ampicillin sensitive, and PSA is 110. ASSESSMENT AND PLAN: This is an 83-year-old male with chronic back pain and severe sepsis, left-sided healthcare-associated pneumonia, acute kidney injury, Enterococcus urinary tract infection, prostatitis and prostate-specific antigen of over 110. She had Urology for prostate evaluation and on ampicillin. Will need [address] Duncan Marinelli's note from yesterday is reviewed. We will follow with you. Peewee Middleton MD
[2018-11-08] MEDS: Digoxin 500 mcg/2ml (0.5 mg/2ml) Inj IVP SCH (13:05)
--- NOTE | 2018-11-08 13:46 | PN ---
SUBJECTIVE: The patient was seen and examined at bedside on the remote telemetry willis. No acute events overnight. He remains afebrile and hemodynamically stable. The patient continues have moments of delirium overnight but is easily reoriented. He continues to endorse low back pain and otherwise offers no complaints. OBJECTIVE: VITAL SIGNS: Temperature 98.1, pulse 77, blood pressure 153/72, respiratory rate 20, and oxygen saturation 94% on room air. GENERAL: Elderly man appearing his stated age, lying in bed, in mild distress secondary to low back pain. HEENT: PERRL, EOMI. No scleral icterus. No conjunctival pallor. NECK: No JVD. LUNGS: Decreased breath sounds at the bases. CARDIOVASCULAR: Irregularly irregular. Normal S1 and S2. ABDOMEN: Normoactive bowel sounds, soft, nontender and nondistended. EXTREMITIES: No edema. NEUROLOGIC: Awake, alert and oriented x 3. No focal motor deficits. LABORATORY DATA: WBC 13.5, hemoglobin 10, hematocrit 34 and platelets 298. Sodium 147, potassium 4.1, chloride 118, bicarb 23, BUN 42, creatinine 1.4 and glucose 131. Blood cultures with no growth to date. Urine culture with Enterococcus faecalis and sensitivities noted. ASSESSMENT: The patient is an 83-year-old man with a past medical history of hypertension, non-insulin dependent diabetes mellitus and lumbosacral radiculopathy who presented with a several day history of low back pain and was admitted for pain control and PT evaluation whose hospital course was complicated by development of new onset atrial fibrillation and healthcare-associated pneumonia. PLAN: 1. AFib, new onset. Input from Dr. Gill noted. The patient remains rate- controlled. Continue Atenolol 25 mg p.o. b.i.d., Aspirin 81 mg p.o. daily and Digoxin. 2. Elevated troponin, consider secondary to impaired renal clearance vs NSTEMI. Input from Dr. Gill noted. The patient remains chest pain free. We will continue with conservative medical management as per Dr. Gill. 3. Healthcare-associated pneumonia. Input from Dr. Middleton noted. The patient remains afebrile and with negative blood cultures. Continue with current antimicrobials. 4. Markedly elevated PSA, consider secondary to prostatitis vs prostate cancer. Bone scan reviewed. Urologic evaluation with Dr. Avalos is pending. 5. RAYRAY on CKD stage II, resolved. Continue with gentle IV fluid hydration, monitor strict I&O's, renally dose medications and avoid nephrotoxins. 6. Lumbosacral radiculopathy, consider secondary to underlying degenerative disc disease vs questionable bony mets of prostate cancer. MRI reviewed. Bone scan reviewed. Continue Dilaudid and Fentanyl TD patch. 7. Hypertension. Blood pressure controlled. Continue Atenolol 25 mg p.o. b.i.d. and Norvasc 10 mg p.o. daily. 8. NIDDM. Most recent A1c of 7.1. Continue insulin sliding scale for coverage, Glimepiride 4 mg p.o. b.i.d. and Januvia 25 mg p.o. daily. 9. Hyperlipidemia. Continue Lipitor 80 mg p.o. daily. 10. Anemia of chronic disease. Hb at baseline. Continue monitor CBC daily. 11. Anxiety disorder. Continue Ativan 1 mg IV q. 6 hours p.r.n. 12. BPH. Continue Flomax 0.4 mg p.o. daily. 13. Prophylaxis. GI prophylaxis not indicated as the patient is eating. DVT prophylaxis not indicated as the patient remains on Lovenox. CODE STATUS: DNR/DNI. Duncan Marinelli MD MTDD
[2018-11-08 18:00] LABS: URINE BILIRUBIN NEGATIVE (NEGATIVE); URINE BLOOD MODERATE (NEGATIVE); URINE GLUCOSE (UA) NEGATIVE (NEGATIVE); URINE LEUKOCYTE ESTERASE NEGATIVE Leu/uL (NEGATIVE); URINE PROTEIN TRACE mg/dL (<30 mg/dL); URINE UROBILINOGEN 0.2 E.U./dL (<1 E.U./dL)
[2018-11-08 18:03] LABS: URINE APPEARANCE CLEAR (CLEAR); URINE COLOR LIGHT YELLOW (YELLOW)
[2018-11-08 19:22] LABS: URINE BACTERIA MOD /hpf; URINE CALCIUM OXALATE CRYSTALS RARE /hpf; URINE EPITHELIAL CELLS 0 - 2 /hpf (0-5); URINE WBC 0 - 2 /hpf (0-6)
[2018-11-09] MEDS: Albuterol-Ipratrop 3 mg / 0.5 (3 ml) UD IH SCH ×6 (01:33→19:56)
[2018-11-09 06:51] LABS: HEMOGLOBIN 10.2 g/dL (14.0-18.0); MEAN CORPUSCULAR HEMOGLOBIN 29.4 pg (25.0-35.0); MEAN CORPUSCULAR HGB CONC 30.6 g/dl (31.0-37.0); RBC 3.47 10^6/uL (3.5-6.1); RED CELL DISTRIBUTION WIDTH 14.7 % (11.5-14.5); WHITE BLOOD COUNT 17.3 10^3/uL (4.5-11.0)
--- NOTE | 2018-11-09 12:33 | PN ---
SUBJECTIVE: The patient was seen and examined at bedside on the remote telemetry willis. Overnight he had a low grade fever of 100.5 but denied any associated symptoms. This morning he continues with low back pain. He has ongoing urologic evaluation. OBJECTIVE: VITAL SIGNS: Temperature TM 100.5, TC 99, pulse 77, blood pressure 150/70, respiratory rate 20, oxygen saturation 94% on room air. GENERAL: Elderly man, appearing his stated age, lying in bed in no apparent distress. HEENT: PERRL, EOMI. No scleral icterus. No conjunctival pallor. NECK: No JVD. LUNGS: Decreased breath sounds at the bases. CARDIOVASCULAR: Irregularly irregular. Normal S1, S2. ABDOMEN: Normoactive bowel sounds, soft, nontender, nondistended. EXTREMITIES: No edema. NEUROLOGIC: Awake, alert and oriented x 3. Nonfocal motor deficits. LABORATORY DATA: WBC 17.3, hemoglobin 10, hematocrit 33, platelets 291. Sodium 150, potassium 3.8, chloride 118, bicarb 24, BUN 40, creatinine 1.5, glucose 171. Blood cultures negative. Urine culture with Enterococcus faecalis and sensitivities noted. ASSESSMENT: The patient is an 83-year-old man with a past medical history of hypertension, non-insulin dependent diabetes mellitus and lumbosacral radiculopathy who presented with a several day history of low back pain and was admitted for pain control and PT evaluation whose hospital course was complicated by development of new onset atrial fibrillation and healthcare-associated pneumonia. PLAN: 1 AFib, new onset. Input from Dr. Gill noted. The patient remains rate- controlled. Continue Atenolol 25 mg p.o. b.i.d Digoxin. ASA remains on hold in anticipation of prostate biopsy. 2. Elevated troponin, consider secondary to impaired renal clearance vs NSTEMI. Input from Dr. Gill noted. The patient remains chest pain free. Continue with conservative medical management as per Dr. Gill. 3. Healthcare-associated pneumonia. Input from Dr. Middleton noted. Continue with current antimicrobials. 4. Markedly elevated PSA, consider secondary to prostatitis vs prostate cancer. Bone scan reviewed. Urologic evaluation of ongoing with Dr. Avalos. 5. RAYRAY on CKD stage II, resolved. Continue to encourage p.o. intake, monitor strict I&O's, renally dose medications and avoid nephrotoxins. 6. Lumbosacral radiculopathy, consider secondary to underlying degenerative disc disease vs questionable metastatic prostate cancer. MRI reviewed. Bone scan reviewed. Continue Dilaudid and Fentanyl TD patch. 7. Hypertension. Blood pressure controlled. Continue with current medications. 8. NIDDM. Most recent A1c of 7.1. Continue with current medications. 9. Hyperlipidemia. Continue Lipitor 80 mg p.o. daily. 10. Anemia of chronic disease. Hb at baseline. Continue monitor CBC daily. 11. Anxiety disorder. Continue at Ativan 1 mg IV q. 6 hours p.r.n. 12. BPH. Continue Flomax 0.4 mg p.o. daily. 13. Prophylaxis. GI prophylaxis not indicated as the patient is eating. DVT prophylaxis not indicated as the patient remains on Lovenox. CODE STATUS: DNR/DNI. Duncan Marinelli MD RENAN
[2018-11-09] MEDS: Insulin Reg-MEDIUM-Coverage SC SCH ×3 (12:41→21:42)
--- NOTE | 2018-11-09 13:41 | RAD ---
Date of service: 11/09/2018 HISTORY: Evaluate pneumonia f/u, tachypnea COMPARISON: Comparison chest 11/03/2018. Comparison also made with prior CT scan abdomen pelvis dated 06/17/2012. FINDINGS: LUNGS: Poor inspiration with low lung volumes, crowded bronchovascular markings bibasilar atelectasis and/or infiltrates. Pulmonary vasculature is also mildly congested with suspected bilateral effusions right larger than left. PLEURA: As above. No pneumothorax apparent. CARDIOVASCULAR: No obvious aortic atherosclerotic calcification present. Cardiomegaly. OSSEOUS STRUCTURES: No significant abnormalities. VISUALIZED UPPER ABDOMEN: Apparent small air-fluid level seen in the right upper quadrant of the abdomen likely due to bowel interposition which is seen to better advantage on prior scan abdomen pelvis 06/17/2012 OTHER FINDINGS: None. IMPRESSION: Poor inspiration with low lung volumes, crowded bronchovascular markings bibasilar atelectasis and/or infiltrates. Pulmonary vasculature is also mildly congested with suspected bilateral effusions right larger than left.
[2018-11-09] MEDS: Digoxin 500 mcg/2ml (0.5 mg/2ml) Inj IVP SCH (14:02)
[2018-11-09 14:06] VITALS: PULSE 88
--- NOTE | 2018-11-09 14:17 | CP.PCM.PCO ---
Physician Communication Note - Physician Communication Note Physician Communication Note: patient appears tachypneic,lethargic, PO intake poor, awaits consult Cipriano
[2018-11-09 17:20] VITALS: RESP 20
[2018-11-09] MEDS ORDERED: Vancomycin 1gm in NS 250ml 1 GM/250 ML BAG IVPB STA (17:39)
--- NOTE | 2018-11-09 18:46 | CON ---
DATE OF CONSULTATION: 11/09/2018 GENITOURINARY CONSULTATION CHIEF COMPLAINT: Back pain. HISTORY OF PRESENT ILLNESS: This is an 83-year-old male, who is seen in his room at [facility]. The patient presented with severe low back pain. During his admission, the patient was noted to have degenerative disk disease with herniation as well as a markedly elevated PSA and a urinary infection. consultation was then requested. The patient is somewhat somnolent now and answering questions. I have discussed his care with his family over the weekend to come up with a plan regarding his further care. Currently, he is voiding without difficulty, although he does have mild frequency with a history of BPH. He continues with severe low back pain. PAST MEDICAL HISTORY: Significant for diabetes, hypertension, and arthritis. MEDICATIONS: Currently include Amaryl, ampicillin, hydralazine, Ativan, Colace, digoxin, Dilaudid, albuterol, ipratropium nebulizer, fentanyl, Flomax, insulin coverage, Januvia, Lanoxin, Lipitor, Lovenox, Norvasc, Senokot, Tenormin, Zofran, Tylenol, was on aspirin which has been held. ALLERGIES: NO KNOWN DRUG ALLERGIES. FAMILY HISTORY: Noncontributory for this admission. SOCIAL HISTORY: Negative for smoking or EtOH use. REVIEW OF SYSTEMS: This was obtained from the chart, as the patient is not fully answering questions at this time. Positives appear to be low back pain, nausea, lethargy, difficulty ambulating, and weakness. PHYSICAL EXAMINATION: GENERAL: The patient is awake, although somewhat somnolent, currently in no acute distress. VITAL SIGNS: He is afebrile, temperature 98.2, BP 161/66, pulse 82, respirations 30. NECK: Supple. There is no obvious adenopathy. CHEST: Exam of the chest reveals shallow tachypneic breathing. CARDIAC: Exam shows positive S1, S2. There is mild peripheral edema. ABDOMEN: The abdomen is soft, nontender, nondistended. There is no noted hepatosplenomegaly or costovertebral angle tenderness. GENITOURINARY: Phallus is normal. Scrotum is normal. Testes bilaterally descended, nontender, no masses. Epididymis are normal. Zavaleta in place draining clear LABORATORY DATA: On laboratory exam, WBC count elevated at 17.3, hemoglobin 10.2, creatinine 1.5 with a BUN of 40, GFR of 45. The patient had a PSA of 110 done on 11/05/2018, PSA was 1.2 in 06/2011. Microbiology showed a urine positive for Enterococcus faecalis. Blood cultures were negative. On radiologic exam, chest x-ray showed possible left basilar pneumonia. The patient had a CT scan of the lumbar spine, which showed markedly severe erosive changes at L1-L2, no acute fractures, spinal stenosis at L1-L2 with soft tissue swelling, possibly representing underlying inflammatory component, otherwise multilevel degenerative disk disease, spondylosis, and osteopenia. There was marked prostatic enlargement. The patient then had a lumbar spine MRI, which showed severe degenerative changes in the L1-L2 disk space, the disk space is filled with fluid, severe degenerative changes have been seen at this level since the CT of 2011 most likely represents progression of degeneration rather than diskitis, no evidence of marrow edema to suggest infection. There is severe degree of spinal stenosis at this level. The patient had an abdominal ultrasound on 11/03/2018, which showed an unremarkable abdominal sonogram. There is no calculus, mass, or hydronephrosis of either kidney. The patient then had a nuclear bone scan done on 11/06/2018. Impression says multiple foci of increased uptake involving the lower thoracic vertebral bodies, L1 and L3; however, the MRI of the spine failed to identify osseous abnormalities to suggest that these represent metastatic lesions. IMPRESSION AND PLAN: This is an 83-year-old male with severe back pain. The cause of the back pain is likely from spinal stenosis and degenerative disk disease. However, given the markedly elevated PSA, there is a possibility that this represents metastatic prostate cancer. I discussed with the family, urologically, the plan would be to consider a prostate ultrasound and biopsy to confirm the presence of prostate cancer. If prostate cancer is present, we can start the patient on hormonal therapy. The patient has multiple comorbid conditions where this may not be a prudent plan. The patient has been on aspirin, and we will need to hold that for at least one week prior to a prostate biopsy, so as to not cause undue bleeding. Also, the patient has a diagnosis of severe sepsis from an enterococcal urinary tract infection, and there is a chance that prostate biopsy will cause recurrence of his sepsis. I will need to discuss this with the ID lead consultant and with the patient's primary medical doctor. The patient is also DNR, do not intubate status, which will need to be reversed if the patient is going to go to the operating room. If the bone scan does not appear to show metastatic lesions and the MRI and CT scan did not show evidence of blastic metastases to the spine, I would likely hold off on an invasive procedure, which may not be necessary, but again, I will discuss this with the patient's primary physician and his family. If desired, we can optimize the patient and plan for the biopsy when medically cleared. Thank you for allowing me to participate in the care of this patient. I will follow along with you. Óscar Avalos MD MTDD
--- NOTE | 2018-11-09 18:56 | PN ---
DATE: 11/09/2018 LOCATION: The patient in room 361, bed 1. REASON FOR CONSULTATION: Atrial fibrillation, troponin elevation, renal dysfunction, pneumonia, lytic lesion in the spine, radiculopathy. SUBJECTIVE: The patient was admitted with low back pain, found to have atrial fibrillation, which was treated and is rate controlled. The patient's troponin was also found to be elevated, but the patient had no chest pain, that troponin elevation maybe related to renal dysfunction, cannot rule out non ST elevation myocardial infarction. However, the patient is symptom free from pain. He has also elevated PSA. There is a possibility of metastatic disease. The patient is always complaining of back pain, so it was decided that the patient should be treated medically at this point. The patient is lying flat in bed without any respiratory distress at present. He is getting pain medications. PHYSICAL EXAMINATION: VITAL SIGNS: On admission, blood pressure 161/66, respirations 20, pulse 82, temperature 98.2, yesterday's temperature was 100.5. HEENT: Head is normocephalic. Eyes; pupils normal. Conjunctivae slightly pale. NECK: JVP low. Carotid equal. THORAX: AP diameter normal. LUNGS: No significant rales. CARDIOVASCULAR: S1 and S2. ABDOMEN: Soft, bowel sounds normal. EXTREMITIES: No clubbing. No cyanosis. LABORATORY DATA: WBC 17.3, hemoglobin 10.2, hematocrit 33.3, and platelets 291. Sodium 144, potassium 4.3, BUN 46, creatinine 1.5, sugar 156, calcium 9.8. DIAGNOSES: Atrial fibrillation, rate controlled. Slight troponin elevation maybe false due to renal dysfunction cannot rule out non ST elevation myocardial infarction. The patient is asymptomatic. No chest pain. Non insulin dependent diabetes mellitus, lumbosacral radiculopathy, possibility of metastatic disease with prostatic origin, healthcare associated pneumonia, hypertension, anxiety, benign prostatic hypertrophy. PLAN: The patient is on glimepiride 4 mg bid, ampicillin 500 mg p.o. q.i.d., hydralazine 10 mg IV q. 6 hours p.r.n. for high blood pressure, digoxin 0.125 p.o. Friday, Friday, Friday. The patient is getting Dilaudid for pain, fentanyl one patch every 72 hours, aspirin 81 mg daily, which is on hold with view that the patient may need prostate biopsy. Flomax 0.4 daily, Januvia 25 mg daily, Lovenox also on hold, amlodipine 10 mg daily, atenolol 25 mg b.i.d. We will continue present therapy and we will follow with you. Markus Ferguson MD
[2018-11-09] MEDS ORDERED: Piperacillin/Tazobact 3.375 gm 100 ML IVPB SCH (22:00)
--- NOTE | 2018-11-09 23:03 | PN ---
DATE: 11/09/2018 SUBJECTIVE: The patient is in bed, seen earlier today. Had a fever yesterday. The patient's overall condition is deteriorating. PHYSICAL EXAMINATION: VITAL SIGNS: Temperature 100.5, blood pressure is 160/60, respiratory rate of 20, heart rate of 92. HEENT: Unremarkable. NECK: Supple. LUNGS: Decreased breath sounds. HEART: Normal S1 and S2. ABDOMEN: Soft. LABORATORY EXAMINATION: Reveals the patient's white count is up to 17,300, BUN of 40, creatinine of 1.5 and procalcitonin 0.47. Urinalysis is noted. Serology is noted. Microbiology reveals Enterococcus. The patient had a chest x-ray which was reported to questionable infiltrates and effusion is questionable. Dr. Bhupinder Lake has read chest x-ray. Dr. Duncan Marinelli's note is appreciated. ASSESSMENT AND PLAN: This is an 83-year-old male with chronic back pain, severe sepsis, now with new sepsis, left-sided healthcare-associated pneumonia, acute kidney injury, Enterococcus urinary tract infection, prostatitis, prostate-specific antigen elevated over 110, lytic lesions on the bone scan. We will give one dose of vancomycin and Zosyn just for renal failure and for healthcare-associated pneumonia. We will discuss with primary. The patient is now Do Not Intubate and Do Not Resuscitate. Discussed with family about antibiotics are warranted. Consider supportive care and hospice setting for this patient who appears to be end stage. Overall prognosis quite poor. Peewee Middleton MD
[2018-11-10] MEDS: Albuterol-Ipratrop 3 mg / 0.5 (3 ml) UD IH SCH ×3 (02:33→07:05)
[2018-11-10 07:58] VITALS: BP 130/69; PULSE 80; TEMP 97.3; O2SAT 77
[2018-11-10] MEDS: Insulin Reg-MEDIUM-Coverage SC SCH (08:16)
[2018-11-10 08:42] LABS: BASO # 0.02 K/mm3 (0.0-2.0); BASO % 0.1 % (0.0-3.0); HEMOGLOBIN 10.2 g/dL (14.0-18.0); LYMPH # 1.2 (1.2-3.4); LYMPH % 5.7 % (22.0-35.0); MEAN CELL VOLUME 97.4 fl (80.0-105.0); MEAN CORPUSCULAR HGB CONC 30.8 g/dl (31.0-37.0); MONO # 2.2 (0.1-0.6); MONO % 10.3 % (1.0-6.0); RBC 3.4 10^6/uL (3.5-6.1); RED CELL DISTRIBUTION WIDTH 14.8 % (11.5-14.5); WHITE BLOOD COUNT 21.7 10^3/uL (4.5-11.0)
[2018-11-10 08:50] LABS: ALB/GLOB RATIO 0.9 (1.1-1.8); ALBUMIN 2.8 g/dL (3.0-4.8); CALCIUM 10.3 mg/dL (8.4-10.5)
[2018-11-10] MEDS ORDERED: Digoxin 500 mcg/2ml (0.5 mg/2ml) Inj IVP SCH (08:58)
--- NOTE | 2018-11-10 11:01 | PN ---
SUBJECTIVE: The patient was seen and examined at bedside on the remote telemetry [facility]. Overnight he was hypoxic (pulse oximetry of 80%) and tachypneic. He was evaluated by the medical doctor and placed on higher flow oxygen via nasal cannula with minimal improvement. He subsequently received a nebulizer treatment and was placed on a Ventimask. After evaluation by the respiratory therapist he was further escalated to a nonrebreather mask. He otherwise remains lethargic, afebrile and clinically unchanged. OBJECTIVE: VITAL SIGNS: Tm 100, Tc 99.1, pulse 92, BP 160/60, respiratory rate 20 and oxygen saturation 93% on 40% Ventimask. GENERAL: Lethargic but arousable, lying in bed in moderate respiratory distress with agonal breathing and accessory muscle use. HEENT: PERRL, EOMI. No scleral icterus. No conjunctival pallor. NECK: No JVD. LUNGS: Decreased breath sounds at the bases with few scattered rhonchi. CARDIOVASCULAR: Tachycardic. Irregularly irregular. Normal S1 and S2. ABDOMEN: Normoactive bowel sounds, soft, nontender, nondistended. EXTREMITIES: No edema. NEUROLOGIC: Lethargic, grimacing to noxious stimuli. LABORATORY DATA: Morning labs are pending. ASSESSMENT: The patient is an 83-year-old man with a past medical history of hypertension, [id number] diabetes mellitus and lumbosacral radiculopathy who presented with a several day history of low back pain and was admitted for pain control and PT evaluation whose hospital course was complicated by development of new onset atrial fibrillation and healthcare-associated pneumonia. PLAN: 1. AFib, new onset. Input from Dr. Gill noted. Continue Atenolol and Digoxin. ASA remains on hold in anticipation of prostate biopsy. 2. Elevated troponin, consider secondary to impaired renal clearance vs NSTEMI. Input from Dr. Gill noted. The patient remains chest pain free. Continue with conservative medical management as per Dr. Gill. 3. Healthcare-associated pneumonia. Input from Dr. Middleton noted. Continue with current antimicrobials. 4. Markedly elevated PSA, consider secondary to prostatitis vs prostate cancer. Input from Dr. Avalos noted and arrangements will be made for prostate ultrasound with biopsy. Repeat PSA of 20.8. 5. RAYRAY on CKD stage II, resolved. Continue to encourage p.o. intake, monitor strict I&O's, renally dose medications and avoid nephrotoxins. 6. Lumbosacral radiculopathy, consider secondary to underlying degenerative disk disease vs questionable metastatic prostate cancer. MRI reviewed. Bone scan reviewed. We will taper opioids given patient's tenuous respiratory status. 7. Hypertension. Continue current medications. 8. NIDDM. Most recent A1c of 7.1. Continue current medications. 9. Hyperlipidemia. Continue Lipitor 80 mg p.o. daily. 10. Anemia of chronic disease. Hb at baseline. Continue to monitor CBC daily. 11. Anxiety disorder. Continue Ativan 1 mg IV q. 6 hours p.r.n. 12. BPH. Continue Flomax 0.4 mg p.o. daily. 13. Prophylaxis. GI prophylaxis not indicated as the patient is eating. DVT prophylaxis not indicated as the patient remains on Lovenox. CODE STATUS: DNR/DNI. Duncan Marinelli MD MTDJeanette
[2018-11-10] MEDS ORDERED: Sodium Chloride 0.45% 1,000 ML IV SCH (11:15)
--- NOTE | 2018-11-10 11:25 | CP.PCM.PRO ---
Pronouncement of Note - Clinical Findings Physical Exam: No Response Verbal/Painful Stimuli, Absent Peripheral Puls es{Carotid & Femoral}, Absent Heart & Breath Sounds, No Pupillary Light Reflex, No Corneal Reflex, Pupils Fixed & Dilated, Absence of Vital Signs - Pronouncement Time Time of Pronouncement of : 10:56 - Notifications Pronouncement Notifications: Family Notified, Atending Notified (Family will be notified by attending PMD as per PMD) Power Brake Operator Notified: No - Autopsy Autopsy Requested: No - [place] [id number]
--- NOTE | 2018-11-10 13:08 | DS ---
ADMITTING DIAGNOSIS: Lumbosacral radiculopathy with Intractable low back pain. DISCHARGE DIAGNOSES: Lumbosacral radiculopathy with concern for metastatic prostate cancer, atrial fibrillation (new onset), healthcare-associated pneumonia, RAYRAY on CKD stage II and an elevated troponin. SECONDARY DIAGNOSES: Hypertension, non-insulin dependent diabetes mellitus, hyperlipidemia, anemia of chronic disease, anxiety disorder and BPH. CONSULTATIONS: Dr. Gill (Cardiology), Dr. Middleton (Infectious Disease), Dr. Ceballos (Pain Management), Dr. Avalos (Urology) and Rochelle Hatfield (Palliative Care). PROCEDURES: None. IMAGING STUDIES: 1. CT of the lumbar spine without contrast demonstrated severe erosive changes at L1-L2 with spinal stenosis and osteopenia but no acute fracture. 2. MRI of the lumbar sping without contrast demonstrated multilevel disc disease with severe generative changes at L1-L2. 3. Abdominal ultrasound demonstrated no acute pathology. DIAGNOSTIC STUDIES: 1. TTE demonstrated mild concentric LVH with preserved EF of 55%, trace aortic regurgitation and mild mitral regurgitation with no evidence of intracardiac vegetation. 2. Nuclear bone scan demonstrated multiple foci of increased uptake to the lower thoracic vertebral bodies L1 and L3 with no obvious osseous abnormalities to suggest metastatic lesions. HISTORY OF PRESENT ILLNESS: The patient is an 83-year-old man with a past medical history of hypertension, non-insulin dependent diabetes mellitus and lumbosacral radiculopathy who presented with a several day history of progressively worsening low back pain. The patient has been experiencing worsening low back pain for the past several months but has declined to seek medical evaluation. Over the preceding 1 week he developed significantly increased low back pain with difficulty ambulating. Due to the increased pain he opted for ED evaluation. In the ED he was in moderate distress secondary to low back pain. A CT of the lumbar spine demonstrated degenerative changes. He was subsequently admitted to the remote telemetry [facility] for continued pain control and PT evaluation. HOSPITAL COURSE: Upon admission to the remote telemetry [facility] he was started on Percocet 5/325 mg p.o. t.i.d. and Tizanidine. He underwent an MRI which confirmed the degenerative changes seen on CT imaging. His pain was poorly controlled and his analgesic regimen was escalated. A consultation was placed with Dr. Ceballos of Pain Management to evaluate for possible epidural injection. An EKG which was obtained prior to the planned epidural demonstrated new-onset atrial fibrillation and thus the procedure was cancelled. The patient was transferred back to the remote telemetry [facility] and was evaluated by Dr. Gill of Cardiology. He was found to have an elevated troponin level of 0.36 but this was felt secondary to impaired renal clearance in the setting of RAYRAY on CKD stage II. The patient was scheduled for a nuclear stress test to rule out any underlying coronary artery disease but unfortunately the patient could not lay flat for the procedure given severe back pain. His hospital course was further complicated by healthcare-associated pneumonia and UTI. A PSA level was sent and was markedly elevated at 110. Due to the severe back pain, in the setting of a profoundly elevated PSA, the patient was sent for a nuclear bone scan to rule out metastatic illness. The results of the bone scan showed increased uptake as described above. Dr. Avalos of Urology was consulted to evaluate the patient for possible biopsy to rule out metastatic prostate cancer. Unfortunately the patient's condition continued to decline and he necessitated increasing narcotic medications for pain control. He furthermore started refusing to take his p.o. medications or eat his prescribed diet. On hospital day #11 he was evaluated by the clinical medical transcriptionist for agonal breathing and respiratory distress. Despite increasing his supplemental oxygen and receiving bronchodilator treatments, his respiratory status continued to decline. He did have a living well with his code status indicated as DNR/DNI. Despite medical efforts he continued to deteriorate and was pronounced on 11/10/2018 at 10:56 a.m. DISPOSITION: The patient . Duncan Marinelli MD RENAN
--- NOTE | 2018-11-10 14:32 | PN ---
DATE: 11/10/2018 REASON FOR CONSULTATION AND FOLLOWUP: Atrial fibrillation, troponin elevated, renal obstruction, pneumonia, lytic lesion in spine, radiculopathy. SUBJECTIVE: The patient is obtunded, but denies any chest pain, shortness of breath or palpitations. PHYSICAL EXAMINATION: GENERAL: Not in any apparent distress. VITAL SIGNS: Temperature afebrile, heart rate 80, blood pressure 130/69. HEENT: PERRLA. Extraocular muscles intact. NECK: Supple. No carotid bruit. No thyromegaly. CHEST: Clear to auscultation. HEART: S1 and S2 regular. ABDOMEN: Soft. EXTREMITIES: Clubbing and cyanosis negative. LABORATORY DATA: Blood workup as follows: WBC 21.3, hemoglobin 10, hematocrit 33.1, platelet count 319. Chemistries show sodium 150, potassium 4.2, chloride 125, BUN 46, creatinine 1.7. IMPRESSION: An 83-year-old male who was initially admitted with low back pain for epidural injection, it was canceled. The patient has borderline troponin positive, renal insufficiency status post nephrostomy tube, elevated PSA, possibly metastatic disease. The patient has been complaining of back pain, history of non-insulin dependent diabetes, anxiety disorder, lumbosacral radiculopathy. Recommended the patient is on fentanyl patch, Dilaudid, Do Not Resuscitate/Do Not Intubate, supportive care. Will sign off and glad to follow p.r.n. Family were yesterday at the bedside, spoke briefly about the patient's condition. Continue gentle hydration for hypernatremia. Hold enoxaparin. We will put half normal saline at 50 mL an hour. The patient had an echocardiography done on 11/04/2018 that revealed ejection fraction 55%, trace to mild tricuspid regurgitation. We will put half saline at 50 mL an hour and we will sign off. Supportive care, consider hospice care. Thank you, Dr. Marinelli, for providing us opportunity in taking care of Gunnar Valero. Markus Gill MD
--- NOTE | 2018-11-11 00:51 | PN ---
DATE: 11/10/2018 SUBJECTIVE: The patient is seen earlier this morning in room 361, bed 1. The patient is in poor condition with agonal breathing. PHYSICAL EXAMINATION: VITAL SIGNS: Temperature of 97, blood pressure of 130/60, respiratory rate of 22, and heart rate of 80. HEENT: Unremarkable. NECK: Supple. LUNGS: Decreased breath sounds. HEART: Normal S1 and S2. ABDOMEN: Soft and nontender. LABORATORY DATA: Noted and reviewed. White count is noted. ASSESSMENT AND PLAN: This is an 83-year-old who was seen early this morning in very poor condition with chronic back pain, severe sepsis with new sepsis healthcare-associated pneumonia, acute kidney injury, Enterococcus urinary tract infection, prostatitis, elevated PSA and lytic lesions on bone scan, on vancomycin and Zosyn. The patient's prognosis is poor. Case discussed with the nursing staff. Dr. Duncan Marinelli's notes were reviewed. Peewee Middleton MD
== END 2018-11-10 10:56 | DRG 551 ==
LOC: ED 00:10 → ERH 05:03 → 3RNO 05:51 → OBSVTOIN 08:06 → INTOOBSV 08:06 → OBSVTOIN 10-31 08:06
PROVIDERS: ADMIT Student in an Organized Health Care Education/Training Program; ATTEND Student in an Organized Health Care Education/Training Program
DX: M54.17 Radiculopathy, lumbosacral region (principal); J18.9 Pneumonia, unspecified organism; A41.9 Sepsis, unspecified organism; R65.20 Severe sepsis without septic shock; N17.9 Acute kidney failure, unspecified; N39.0 Urinary tract infection, site not specified; E87.0 Hyperosmolality and hypernatremia; I48.91 Unspecified atrial fibrillation; M51.9 Unspecified thoracic, thoracolumbar and lumbosacral intervertebral disc disorder; I12.9 Hypertensive chronic kidney disease with stage 1 through stage 4 chronic kidney disease, or unspecified chronic kidney disease; N18.2 Chronic kidney disease, stage 2 (mild); M54.5 Low back pain; E11.22 Type 2 diabetes mellitus with diabetic chronic kidney disease; G89.29 Other chronic pain; M17.12 Unilateral primary osteoarthritis, left knee; N40.0 Benign prostatic hyperplasia without lower urinary tract symptoms; M17.0 Bilateral primary osteoarthritis of knee; E11.65 Type 2 diabetes mellitus with hyperglycemia; I25.10 Atherosclerotic heart disease of native coronary artery without angina pectoris; I08.0 Rheumatic disorders of both mitral and aortic valves; B95.2 Enterococcus as the cause of diseases classified elsewhere; D63.8 Anemia in other chronic diseases classified elsewhere; E78.5 Hyperlipidemia, unspecified; F41.9 Anxiety disorder, unspecified; M46.90 Unspecified inflammatory spondylopathy, site unspecified; M47.9 Spondylosis, unspecified; M48.061 Spinal stenosis, lumbar region without neurogenic claudication; Y95 Nosocomial condition; N41.9 Inflammatory disease of prostate, unspecified; R09.02 Hypoxemia; Z53.09 Procedure and treatment not carried out because of other contraindication; Z66 Do not resuscitate; Z87.891 Personal history of nicotine dependence; Z93.6 Other artificial openings of urinary tract status; M62.838 Other muscle spasm